=== PATIENT | female | born 1945 | race Caucasian/White ===

== ENCOUNTER → 2023-10-29 07:32 | Outpatient (REF) | payer MEDICARE, SELFPAY | LOC: EMG 07:32 | PROVIDERS: ATTENDING PHYSICIAN Orthopaedic Surgery Hand Surgery; FAMILY PHYSICIAN Physician Assistant | DX: G56.01 Carpal tunnel syndrome, right upper limb (principal); R20.0 Anesthesia of skin | CPT/HCPCS: 95886; 95909 ==

== ENCOUNTER 2024-06-21 21:33 | Emergency (ER) | payer MEDICARE, SELFPAY ==
[2024-06-21 21:38] VITALS: BP 155/86
[2024-06-21 21:53] LABS: % Basophils 0.3 % (0-2); % Eosinophils 0.8 % (0-6); % Immature Granulocytes 0.8 % (0-0.5); % Lymphocytes 9.2 % (20.5-51.1); % Monocytes 10.1 % (1.7-9.3); % Neutrophils 78.8 % (42.2-75.2); Absolute Eosinophils 0.1 10^3/uL (0-0.7); Absolute Immature Granulocytes 0.1 10^3/uL (0-0.05); Absolute Lymphocytes 0.7 10^3/uL (1.2-3.4); Absolute Monocytes 0.8 10^3/uL (0.1-0.6); Absolute Neutrophils 5.9 10^3/uL (1.4-6.5); Hematocrit 31.8 % (37.0-47.0); Hemoglobin 10.3 g/dL (12.0-16.0); Mean Corp Hgb Conc. 32.4 g/dL (33.0-37.0); Mean Corpuscular Hgb 23.7 pg (27.0-31.0); Mean Corpuscular Volume 73.1 fL (81.0-99.0); Mean Platelet Volume 10.6 fL (7.4-10.4); Nucleated Red Blood Cells % 0 %; Platelet Count 261 10^3/uL (130-400); Red Blood Cell Count 4.35 10^6/uL (4.20-5.40); Red Cell Dist. Width 17.2 % (11.5-14.5); White Blood Cell Count 7.5 10^3/uL (4.8-10.8)
[2024-06-21 22:15] LABS: ALT (SGPT) 13 U/L (0-35); AST (SGOT) 18 U/L (14-36); Albumin 3.9 g/dl (3.5-5.0); Alkaline Phosphatase 94 U/L (38-126); Blood Urea Nitrogen 14 mg/dl (7-17); Carbon Dioxide 19 mmol/L (22-30); Chloride 101 mmol/L (98-107); Glucose 108 mg/dl (70-99); Potassium 4.1 mmol/L (3.5-5.1); Sodium 134 mmol/L (135-145); Total Bilirubin 0.5 mg/dl (0.2-1.3); Total Protein 6.9 g/dl (6.3-8.2); eGFR > 60.00
--- NOTE | 2024-06-21 23:34 | ED.GENMED ---
History of Present Illness
General
Chief Complaint: Abdominal Pain
Source: patient
Time Seen by Provider: 06/21/24 23:28
History of Present Illness
History of Present Illness:
79-year-old female presents to the emergency room complaining of abdominal pain. Patient has been having the abdominal pain intermittently for about the past week. It seemed to be more prominent on the right. Patient also complaining of some
constipation. She is moving her bowels but seems to be a small amount each time. No fever, chills, diarrhea. She has nausea but has not vomited. No sick contacts. Patient does have a history of a gastric sleeve surgery.
Past History
Past History
ED Past Medical History: GERD, HTN, Hypercholesterolemia and Other (Arthritis)
Social History
Tobacco: Non-smoker
Phy Exam
Physical Exam
Physical Exam:
General: Awake, Alert, Oriented X3. No acute distress.
Vitals: unremarkable
Head: Atraumatic
Eyes: Pupils equal, EOMI
Throat: Airway intact, no exudates
Neck: Trachea midline
Lungs: Clear and equal b/l
Heart: Regular rate, no murmurs
Abd: Soft, Nontender, No pulsatile mass
Neuro: Nonfocal
Skin: Warm, dry, no rash
Extremities: pulses equal b/l, no edema
Course
Orders/Labs/Results
Orders:
Orders
06/21/24 21:45
CMP [Comprehensive Metabolic Panel] Urgent
Complete Blood Count/With Diff Urgent
06/21/24 23:35
Urinalysis Reflex To Culture Urgent
Date Specimen was Collected: 06/22/24
Time Specimen was Collected: 02:01
06/22/24 01:00
CT Abd/pelvis W Iv Cont Urgent
Reason For Exam: lower abd pain
06/22/24 02:03
Urine Microscopic Reflex Cult Urgent
06/22/24 03:01
LevoFLOXacin [Levaquin] 750 mg PO NOW STA
MetroNIDAZOLE [Flagyl] 500 mg PO NOW STA
Abnormal Lab Results
06/21/24 06/22/24
21:45 02:03
Hgb 10.3 L g/dL
(12.0-16.0)
Hct 31.8 L %
(37.0-47.0)
MCV 73.1 L fL
(81.0-99.0)
MCH 23.7 L pg
(27.0-31.0)
MCHC 32.4 L g/dL
(33.0-37.0)
RDW 17.2 H %
(11.5-14.5)
MPV 10.6 H fL
(7.4-10.4)
Abs Immat Gran (auto) 0.1 H 10^3/uL
(0-0.05)
Absolute Lymphs (auto) 0.7 L 10^3/uL
(1.2-3.4)
Absolute Monos (auto) 0.8 H 10^3/uL
(0.1-0.6)
Immature Gran % 0.8 H %
(0-0.5)
Neutrophils % 78.8 H %
(42.2-75.2)
Lymphocytes % 9.2 L %
(20.5-51.1)
Monocytes % 10.1 H %
(1.7-9.3)
Sodium 134 L mmol/L
(135-145)
Carbon Dioxide 19 L mmol/L
(22-30)
Glucose 108 H mg/dl
(70-99)
Urine Ketones Trace A
(Negative)
Ur Occult Blood Reflex Trace A
(Negative)
Leukocyte Esterase Rfl Trace A
(Negative)
Urine RBC 7-10 A /HPF
(0-2)
Urine Bacteria (Reflex) Few A
(Negative)
06/21/24 21:45
06/21/24 21:45
Vital Signs
Initial and Last Documented VS:
Initial Vital Signs
Temp Pulse Resp BP Pulse Ox
98.9 F 80 22 155/86 99
06/21/24 21:38 06/21/24 21:38 06/21/24 21:38 06/21/24 21:38 06/21/24 21:38
Last Documented Vital Signs
Temp Pulse Resp BP Pulse Ox
98.9 F 74 20 142/98 96
06/21/24 21:38 06/22/24 01:08 06/22/24 00:45 06/22/24 03:15 06/22/24 01:08
MDM/Problems Addressed
Differential Diagnosis Includes:
Kidney stone, diverticulitis, constipation
MDM/Problems Addressed:
Patient is hemodynamically stable. White count is normal. She is found to have diverticulitis on imaging. She does not appear unstable and does appear to be a good candidate for outpatient management. Patient is allergic to penicillin and so we
will treat her with Levaquin and Flagyl.
*Radiology
Radiology exam reviewed: radiology read reviewed
*Pulse Oximetry
Patient hypoxic: no
*Critical Care Note
Total Time (30-74mins, 75-104mins- exclusive of procedures): Not Applicable
ED Attending Note
-
Portions of this chart may have been created with voice recognition software.� Occasional wrong word or��sound alike� substitutions may have occurred due to the inherent limitations of voice recognition software.
Discharge Plan
Departure
Patient Disposition: Home (Routine Discharge)
Date of Disposition: 06/22/24
Time of Disposition: 03:03
Patient with high blood pressure during this ER visit?: No
Condition: Good
Discharge Problem:
Abdominal pain
Instructions: Diverticulitis (DC), Abdominal Pain
Prescriptions:
New
metronidazole 500 mg tablet
500 mg PO TID Qty: 21 0RF
levofloxacin 750 mg tablet
750 mg PO DAILY 7 Days Qty: 7 0RF
No Action
multivitamin [Jdc-Pjbrjy-Izpjb] 1 EACH tablet
1 ea PO DAILY
sertraline 100 MG tablet
150 mg PO DAILY
ezetimibe-simvastatin [Vytorin 10-10] 1 EACH tablet
1 ea PO DAILY
C,E,zinc,copper [id number] 1 CAP capsule
1 cap PO DAILY
Calcium
1 tab PO DAILY
Celebrex
1 tab PO DAILY
Patient Comments:
unsure of dosage
warfarin [Jantoven] 5 MG tablet
5 mg PO DAILY Qty: 0 0RF
Omeprazole
1 tab PO DAILY
Sulfamethoxazole/Trimethoprim DS
1 tab PO BID
clindamycin HCl 300 MG capsule
300 mg PO TID Qty: 30 0RF
Referrals:
Erika Mcdonnell PA-C [Family Provider] -
Wilmer Sol MD [Active] -
Interventions
Interventions:
*Risk Screen - Suicide Last Done: 06/21/24 21:38
*General Assessment Last Done: 06/21/24 23:48
*Neglect/Abuse Screening Last Done: 06/21/24 21:38
ED- Fall Risk Assessment Last Done: 06/21/24 23:48
*ED COVID-19 Vaccine History Last Done: 06/21/24 23:48
*Nursing Disposition Last Done: 06/22/24 03:42
TE-Kiudho-Sccpwugnov Assessment Last Done: 06/21/24 23:48
Discharge Date and Time
Discharge Date/Time: 06/22/24 03:43
Print Language: BAHRAINI
[2024-06-21 23:48] VITALS: BMI 32.9
[2024-06-21 23:54] VITALS: BP 146/73
[2024-06-22] VITALS: BP 104/94
[2024-06-22 02:11] LABS: Urine Albumin Negative (Neg - Trace); Urine Bilirubin Negative (Negative); Urine Character Clear (Clear); Urine Color Yellow; Urine Glucose Negative (Negative); Urine Ketone Trace (Negative); Urine Leukocyte Trace (Negative); Urine Nitrite Negative (Negative); Urine Occult Blood Trace (Negative); Urine Urobilinogen Negative (Neg - 1+); Urine pH 6.5 (5.0-9.0)
[2024-06-22 02:20] LABS: Urine Bacteria Few (Negative)
[2024-06-22] MEDS: LEVAQUIN 750 MG PO (03:09)
[2024-06-22] MEDS: FLAGYL 500 MG PO (03:09)
[2024-06-22 03:15] VITALS: BP 142/98
== END 2024-06-22 03:43 | disposition home or self-care (01) ==
LOC: EMR 21:33
PROVIDERS: Emergency Medicine; EMERGENCY PHYSICIAN Emergency Medicine; FAMILY PHYSICIAN Physician Assistant
DX: R10.9 Unspecified abdominal pain (principal); K59.00 Constipation, unspecified; K21.9 Gastro-esophageal reflux disease without esophagitis; I10 Essential (primary) hypertension; E78.00 Pure hypercholesterolemia, unspecified; M19.90 Unspecified osteoarthritis, unspecified site
CPT/HCPCS: 99284; 74177; 80053; 81003; 81015; 85025; Q9967

== ENCOUNTER → 2024-07-21 13:12 | Outpatient (REF) | payer MEDICARE, SELFPAY | LOC: HWRAD 13:12 | PROVIDERS: ATTENDING PHYSICIAN Physician Assistant | DX: N83.8 Other noninflammatory disorders of ovary, fallopian tube and broad ligament (principal) | CPT/HCPCS: 76830; 76856 ==

== ENCOUNTER 2024-08-29 03:42 | Inpatient (IN) | payer MEDICARE, SELFPAY ==
[2024-08-28 18:59] VITALS: BP 166/95
--- NOTE | 2024-08-28 22:09 | ED.GENMED ---
History of Present Illness
General
Chief Complaint: Musculo-Skeletal Complaint
Source: patient and family
Exam Limitations: none
Time Seen by Provider: 08/28/24 21:55
Nursing documentation reviewed up to this point in time: agreed with
History of Present Illness
History of Present Illness:
This a pleasant 79-year-old female that presents to the emergency department with left groin pain. She states that she was getting out of the shower and felt sudden pain. She denies any trauma. She felt a popping sensation in her groin. Patient
typically takes warfarin but she is due for a colonoscopy this week and has been bridging to Lovenox. Patient denies numbness or tingling. Reports no abdominal pain, except for the pain in her right lower quadrant that is being evaluated for
diverticulitis. She has been to the emergency department 2 times in the last few weeks for this diverticulitis pain. Patient states that the current pain is on the opposite side and does not feel similar. Denies fever, chills, nausea or vomiting.
She states that her pain is exacerbated when she straightens out her leg. She had a prior hip replacement and knee replacement on the left side but again does not feel that this is similar pain.
Past History
Past History
ED Past Medical History: GERD, HTN, Hypercholesterolemia and Other (Arthritis)
Social History
Tobacco: Non-smoker
Review of Systems
Review of Systems
Allergies reviewed?: Yes
All Other Systems: ROS reviewed and negative except as documented in HPI and ROS
ABD/GI: Denies abdominal pain, nausea, vomiting, diarrhea or constipated
Musculoskeletal: Reports joint swelling and muscle stiffness
Phy Exam
General Physical Exam
General Presentation: well appearing and moderate distress
General age: appears stated age
General Skin: warm and dry
General Habitus: normal
General Mental: alert
General Hydration: appears well hydrated
ENT Exam
ENT Exam: EOMI, pharynx normal, neck supple and normocephalic
Eye Exam
Eye Exam: PERRL, cornea clear and conjunctiva normal
Cardiovascular Exam
Cardiovascular Exam: regular rate/rhythm, no edema, no murmur and normal peripheral pulses
Pulmonary Exam
Pulmonary Exam: lungs clear, no respiratory distress, no rales, no crackles, no rhonchi, no stridor, no wheezing and no cough
Gastrointestinal Exam
Gastrointestinal Exam: normal bowel sounds, non tender, soft, no organomegaly, no pulsatile mass, non distended and other (Ecchymosis from subcutaneous injections in her lower abdomen)
Neurological Exam
Neurological Exam: alert, oriented x3, no motor deficits and speech normal
Musculoskeletal Exam
Musculoskeletal Exam: full ROM and no edema
Skin Exam
Skin Exam: normal color, warm/dry, no rash and no petechia
Psychiatric Exam
Psychiatric Exam: normal mood/affect
Course
Orders/Labs/Results
Orders:
Orders
08/28/24 22:05
Morphine Sulfate 4 mg IV NOW STA
Ondansetron Injectable [Zofran] 4 mg IV NOW STA
US Legs, Left [US Periph Venous LOWER Ext LT] Urgent
Comment:
Reason For Exam: lgroin pain, sudden onset, while bridging anticoag
08/28/24 22:13
Complete Blood Count/With Diff Urgent
Comprehensive Metabolic Panel Urgent
Prothrombin Time Urgent
08/29/24 00:00
CT Pelvis W/o Iv Contrast Urgent
Reason For Exam: left groin pain
08/29/24 00:57
CT Abd/pelvis Angio W/wo Iv Urgent
Comment:
Reason For Exam: left illiopsoas bleed
08/29/24 00:58
Type+Screen Urgent
08/29/24 01:40
ABO2 Urgent
BBK Wristband Number:
Associate notified that ABO2 has been ordered: CHITRA
Date: 08/29/24
Time: 01:10
Sample Collector ID: [id number]
08/29/24 02:58
Morphine Sulfate 4 mg .ROUTE .STK-MED ONE
08/29/24 03:11
Morphine Sulfate 4 mg IV NOW STA
08/29/24 03:22
Admit/Transfer Patient As Directed
Co-Sign Provider:
Level of Care: Inpatient admission
Assign to:: Telemetry
Physician / Group: hospitalist
Diagnosis: spontanous RP hematoma
Reason for Telemetry: Other
Other Reason for Telemetry: bleeding
Date to Stop Telemetry: 08/31/24
Time to Stop Telemetry: 11:00
Reason for Hospitalization: spontaneous hematoma
Expected length of stay greater than two midnights?: Yes
ELOS- Estimated Length of Stay in days: 2
I certify the patient meets the requirements for IP care: Yes
PRN Pain Medication Management As Directed
May give lesser potent ordered pain med per pt: Yes
preference::
Protocol:: Medication orders for pain may be administered in a
manner that supports deferring to patient preference
when the pt is:
- Requesting an ordered lesser potent pain medication.
Least to most potent pain medications are defined
as: acetaminophen < NSAID < tramadol < opioids
(morphine, oxycodone, hydromorphone).
- Requesting a lesser dose of the same medication IF
ORDERED.
- Requesting a less intrusive route of administration
if both routes are prescribed by the provider (PO <
IV).
08/29/24 03:24
Code Status As Directed
Resuscitation Status: Full Code
08/31/24 11:00
DC Protocol for Telemetry ONCE
Abnormal Lab Results
08/28/24
22:13
RBC 4.14 L 10^6/uL
(4.20-5.40)
Hgb 10.2 L g/dL
(12.0-16.0)
Hct 30.5 L %
(37.0-47.0)
MCV 73.7 L fL
(81.0-99.0)
MCH 24.6 L pg
(27.0-31.0)
RDW 18.7 H %
(11.5-14.5)
MPV 10.7 H fL
(7.4-10.4)
Absolute Neuts (auto) 7.4 H 10^3/uL
(1.4-6.5)
Absolute Lymphs (auto) 0.4 L 10^3/uL
(1.2-3.4)
Neutrophils % 90.7 H %
(42.2-75.2)
Lymphocytes % 4.7 L %
(20.5-51.1)
PT 27.1 H Sec
(11.4-14.6)
Sodium 134 L mmol/L
(135-145)
Carbon Dioxide 21 L mmol/L
(22-30)
Glucose 144 H mg/dl
(70-99)
08/28/24 22:13
08/28/24 22:13
Vital Signs
Initial and Last Documented VS:
Initial Vital Signs
Temp Pulse Resp BP Pulse Ox
97.9 F 63 20 166/95 99
08/28/24 18:59 08/28/24 18:59 08/28/24 18:59 08/28/24 18:59 08/28/24 18:59
Last Documented Vital Signs
Temp Pulse Resp BP Pulse Ox
97.9 F 81 22 147/90 96
08/28/24 18:59 08/29/24 03:00 08/29/24 03:00 08/29/24 03:00 08/29/24 03:00
*Critical Care Note
Total Time (30-74mins, 75-104mins- exclusive of procedures): 35 (Critical care statement: A total of 35 minutes of critical care time was provided for this patient. This time is separate from time utilized to perform the aforementioned documented
procedures. Aggregate critical care time includes only time during which I was engaged in work directl)
Update Note
Update Note:
Ultrasound negative for DVT
Will order CT scan for persistent pelvic pain
Updated patient on CT scan results as follows:
CT PELVIS noncon
IMPRESSION:
Comparison: 06/22/2024.
Large hematoma centered in the left iliopsoas muscle measuring approximately 6.4 x 8.7 x 14 cm. There is adjacent extraperitoneal hemorrhage in the left pelvis is a possible small amount of intraperitoneal hemorrhage in the pelvis. If indicated
could evaluate further with CTA.
No acute osseous abnormality. Left total hip arthroplasty.
There is once again diverticulitis of the sigmoid colon with extensive inflammatory changes which is abutting and inseparable from the fundus of the uterus. Correlate with any abnormal vaginal discharge for the possibility of a developing
colouterine fistula. Additionally, recommend follow-up to exclude an underlying mass lesion in this location.
[facility] texted interventional radiology awaiting for response
CT angio of the abdomen pelvis ordered
CTA AP w/wo iv contrast
IMPRESSION:
Comparison: Same day noncontrast CT pelvis, CT abdomen and pelvis on 06/22/2024.
The large left-sided iliopsoas hematoma is similar compared to the prior, along with the adjacent extraperitoneal hemorrhage in the left pelvis. No evidence of active bleeding identified on the arterial phase. On the venous phase there are 2 small
foci of active bleeding (601/72 and 74).
Similar sigmoid colon diverticulitis with inflammatory changes abutting the fundus of the uterus. As described previously correlate for any clinical signs of a colouterine fistula and consider follow-up with general surgery. Additionally,
follow-up imaging and/or endoscopy recommended to exclude an underlying mass lesion.
Severe atherosclerosis in the abdominal aorta. No AAA.
Gastric sleeve.
Cholecystectomy.
Small hiatal hernia.
Moderate umbilical hernia containing fat and fluid.
ED Attending Note
-
Portions of this chart may have been created with voice recognition software.� Occasional wrong word or��sound alike� substitutions may have occurred due to the inherent limitations of voice recognition software.
Discharge Plan
Departure
Patient Disposition: Admit
Date of Disposition: 08/29/24
Time of Disposition: 02:10
Presentation/result/management discussed w/ accepting MD/DO: Hospitalist
Condition: Fair
Discharge Problem:
Hematoma of left iliopsoas muscle, Diverticulitis of sigmoid colon
Interventions
Interventions:
*Risk Screen - Suicide Last Done: 08/29/24 00:15
*General Assessment Last Done: 08/29/24 00:15
*Neglect/Abuse Screening Last Done: 08/29/24 00:15
*ED- Fall Risk Assessment Last Done: 08/28/24 21:04
*ED COVID-19 Vaccine History Last Done: 08/29/24 00:15
ED-Musculoskeletal Assessment Last Done: 08/28/24 21:04
[2024-08-28] MEDS: ZOFRAN 4 MG IV (22:13)
[2024-08-28] MEDS: MORPHINE SULFATE 4 MG IV (22:16)
[2024-08-28 22:31] LABS: % Basophils 0.1 % (0-2); % Immature Granulocytes 0.5 % (0-0.5); % Lymphocytes 4.7 % (20.5-51.1); % Neutrophils 90.7 % (42.2-75.2); Absolute Lymphocytes 0.4 10^3/uL (1.2-3.4); Absolute Monocytes 0.3 10^3/uL (0.1-0.6); Absolute Neutrophils 7.4 10^3/uL (1.4-6.5); Hematocrit 30.5 % (37.0-47.0); Hemoglobin 10.2 g/dL (12.0-16.0); Mean Corp Hgb Conc. 33.4 g/dL (33.0-37.0); Mean Corpuscular Hgb 24.6 pg (27.0-31.0); Mean Corpuscular Volume 73.7 fL (81.0-99.0); Mean Platelet Volume 10.7 fL (7.4-10.4); Nucleated Red Blood Cells % 0 %; Platelet Count 289 10^3/uL (130-400); Red Blood Cell Count 4.14 10^6/uL (4.20-5.40); Red Cell Dist. Width 18.7 % (11.5-14.5); White Blood Cell Count 8.2 10^3/uL (4.8-10.8)
[2024-08-28 22:35] VITALS: BP 169/88
[2024-08-28 22:38] LABS: PT 27.1 Sec (11.4-14.6)
[2024-08-28 22:48] LABS: ALT (SGPT) 14 U/L (0-35); AST (SGOT) 19 U/L (14-36); Albumin 3.7 g/dl (3.5-5.0); Alkaline Phosphatase 97 U/L (38-126); Blood Urea Nitrogen 13 mg/dl (7-17); Calcium 8.8 mg/dl (8.4-10.2); Carbon Dioxide 21 mmol/L (22-30); Chloride 104 mmol/L (98-107); Glucose 144 mg/dl (70-99); Potassium 4.2 mmol/L (3.5-5.1); Sodium 134 mmol/L (135-145); Total Bilirubin 0.6 mg/dl (0.2-1.3); Total Protein 6.6 g/dl (6.3-8.2); eGFR > 60.00
[2024-08-29] VITALS (9 sets, daily range): BP systolic 92–156; BP diastolic 64–96; BMI 31.8; BMI 30.8
--- NOTE | 2024-08-29 02:54 | HPS.HSE ---
Family Physician
-
Family Physician: Brown Flores MD
Chief Complaint
-
left groin pain
History of Present Illness
This is a 79 y.o female with past medical history of portal vein thrombosis for which she is anticoagulated on Coumadin, hypertension, thoracic aortic aneurysm without rupture, depression, anxiety, GERD, hyperlipidemia presenting to the emergency
department with left-sided groin pain that started spontaneously the previous evening.
Patient reported that she was just walking out of the shower going to join her to watch TV when she began to have excruciating left inguinal groin pain. She reports that has 10 out of 10 and more. She denies any pain radiating down to her
legs. She denies any nausea or vomiting. She denies any fevers or chills. She denies any abdominal distention. She denies having any urinary symptoms.
Patient was recently diagnosed with diverticulitis and was seen at [facility] with discharge on August 23 to completed 2-week course of antibiotics. She does report she has been using cefuroxime since then and denies having abdominal symptoms
or urinary symptoms. She denies having any fevers or chills. Due to the degree of her diverticulitis she has a pending colonoscopy and EGD. Prior to this episode she was seen at the emergency department in June for episode of diverticulitis
for which she also was treated with antibiotics without admission.
Because of the pending EGD patient was told to discontinue or warfarin and to bridge with Lovenox. She started bridging with Lovenox 2 days ago and last dose of Lovenox was Friday morning. Coumadin was apparently discontinued on 3 days
prior to onset of symptoms.
In the emergency department she was afebrile, blood pressure was stable at 156/90 with a pulse of 67 and oxygen saturation 7% on room air. Hemoglobin was 10.2, white count was 8.2 and a platelet count of 289. Electrolytes BUN/creatinine were all
in normal range. INR remains elevated at 2.5.
Peripheral ultrasound is negative for DVT.
CT of the abdomen pelvis with angio shows large hematoma centered in the left iliopsoas muscle measuring approximately 6 x 8 x 14 cm. There is adjacent extraperitoneal hemorrhage in the left pelvis with which is a possible small amount of
intraperitoneal hemorrhage. There is also no evidence of active bleeding identified in the arterial phase. On the venous phase and appears to be 2 small foci of active bleeding. There is also ongoing active sigmoid diverticulitis with extensive
inflammatory changes that is abating the fundus of the uterus with loss of distinction
Medical History
Past Medical History
Past Medical History: Reports GERD, HTN and Other (Portal vein thrombosis)
Additional Past Medical History:
Abdominal aortic aneurysm
Past Surgical History: Reports Cholecystectomy, Orthopedic (Left total knee replacement, left total hip arthroplasty) and Tonsilectomy
Additional Past Surgical History:
Sleeve gastrectomy 2016
Social History
Tobacco: Non-smoker
Alcohol: None
Drug: None
Personal:
Living: With Family
Employment: Retired
Family History
Family History: Not pertinent
Allergies / Home Medications
Allergies reflects when Allergies were last updated in [employer]
Home Medications with original date entered in [employer]
Allergy/Medication List:
Allergies
Allergy/AdvReac Type Severity Reaction Status Date / Time
itraconazole [From Sporanox] Allergy Rash Verified 06/21/24 21:41
Penicillins Allergy Rash Verified 06/21/24 21:41
vancomycin Allergy Rash Verified 06/21/24 21:41
Home Medications
ezetimibe 10 mg-simvastatin 10 mg tablet (Vytorin) 1 ea PO DAILY 12/04/12
multivitamin (Edb-Ysncfi-Prvmp tablet) 1 ea PO DAILY 12/04/12
sertraline 100 mg tablet 150 mg PO DAILY 12/04/12
warfarin 5 mg tablet (Jantoven) 5 mg PO DAILY ##0 10/31/14
celecoxib 200 mg capsule 200 mg PO DAILY 08/29/24
enoxaparin 80 mg/0.8 mL subcutaneous syringe (Lovenox) 80 mg SC Q12H 08/29/24
losartan 25 mg tablet 25 mg PO DAILY 08/29/24
metoprolol tartrate 25 mg tablet 12.5 mg PO BID 08/29/24
omeprazole 40 mg capsule,delayed release 40 mg PO DAILY 08/29/24
trazodone 50 mg tablet 50 mg PO HS 08/29/24
Review of Systems
-
History Source: Patient
Constitutional: Reports No Symptoms
EENT: Reports No Symptoms
Respiratory: Reports No Symptoms
Cardiac: Reports No Symptoms
Abdomen/GI: Reports Abdominal Pain and Nausea
: Reports No Symptoms
Musculoskeletal: Reports No Symptoms
Skin: Reports No Symptoms
Neurological: Reports No Symptoms
Endocrine: Reports No Symptoms
Hematologic/Lymphatic: Reports No Symptoms
Psych: Reports No Symptoms
Physical Exam
Vital Signs
Vital Signs
Temp Pulse Resp BP Pulse Ox
97.9 F 67 16 156/96 97
08/28/24 18:59 08/29/24 00:15 08/29/24 00:15 08/29/24 00:15 08/29/24 02:19
Physical Exam
General: Well Developed, Well Nourished and Pain
HEENT: NormoCephalic, Anicteric, Moist mucous membranes and Atraumatic
Respiratory: Clear
Cardiac: S1/S2 and Regular Rhythm
Breast: Deferred by me
GI: Soft, Non Distended, Normal Bowel Sounds and Tender
Rectal: Deferred by Provider
Genito-urinary: Deferred by me
Musculoskeletal: No Clubbing, No Cyanosis and No Edema
Skin: Warm
Neuro: AO x 3 and Nonfocal/grossly intact
Hematologic/Lymphatic: No Lymphadenopathy
Psych: Calm
Laboratory Results
-
08/28/24 22:13
08/28/24 22:13
Laboratory Results
PT 27.1 Sec (11.4-14.6) H 08/28/24 22:13
INR 2.50 08/28/24 22:13
Total Bilirubin 0.6 mg/dl (0.2-1.3) 08/28/24 22:13
AST 19 U/L (14-36) 08/28/24 22:13
ALT 14 U/L (0-35) 08/28/24 22:13
Alkaline Phosphatase 97 U/L (38-126) 08/28/24 22:13
Data Reviewed
-
CT Scan: Report Reviewed by me
Lab Data: Labs Reviewed by me
Old Records: Reviewed
Impression/Plan
-
IMPRESSION:
79-year-old female with history of portal vein thrombosis for which she is anticoagulated on Coumadin, hypertension, obesity, history of recent diverticulitis for which he is pending colonoscopy that required bridging of anticoagulation who now
presents to the emergency department with acute episode of left-sided groin pain and was found to have a fairly large hematoma centered in the left iliopsoas muscle. She has a small foci of bleeding but no arterial bleed. She still has
inflammatory changes consistent with sigmoid diverticulitis but she is not showing systemic signs of diverticulitis at this time.
PLAN:
1. Rp hematoma centered in the left iliopsoas muscle - large hematoma but no arterial bleed. Small bleeding foci noted. She is hemodynamically stable. Hgb is normal and unchanged from june. Appears to be spontanous without trauma. However she
has been taking lovenox 80mg sc q 12 since friday with discontinuation of coumadin while preparing for colonoscopy/egd at [facility] later this week. I suspect anticoagulation is a factor.
- admit to telemetry for now
- d/w IR, evaluating images but states unlikely to need procedure
- NPO for now
- type and screen and h/h q 8
- INR 2.5, holding AC for now
- pain control and antimetics
2. Diverticulitis - CT scan shows active inflammatory process although patient appears to have improved symptomatically since 08/23 until occurence of hematoma. She was not discharged on flagyl due to it's potentiating effect on warfarin.
- due to ongoing disease and avoiding flagyl for coaulopathy, as well as pcn allergy, will give meropenem for now as a single regimen
- monitor serial exam
- CT scan suggests surgical consult, however not a surgical candidate at this time
- NPO
- maintenance fluids
- ppi iv daily
- continue metoprolol with hold parameters
DVT PPX - SCDs
Code status - full code
[2024-08-29] MEDS: MORPHINE SULFATE 4 MG IV (03:11)
[2024-08-29 06:10] LABS: Hematocrit 29.5 % (37.0-47.0); Hemoglobin 9.6 g/dL (12.0-16.0); Mean Corp Hgb Conc. 32.5 g/dL (33.0-37.0); Mean Corpuscular Hgb 24.6 pg (27.0-31.0); Mean Corpuscular Volume 75.4 fL (81.0-99.0); Mean Platelet Volume 10.4 fL (7.4-10.4); Platelet Count 278 10^3/uL (130-400); Red Blood Cell Count 3.91 10^6/uL (4.20-5.40); Red Cell Dist. Width 18.8 % (11.5-14.5); White Blood Cell Count 8.4 10^3/uL (4.8-10.8)
[2024-08-29 06:18] LABS: INR 2.32; PT 25.5 Sec (11.4-14.6)
[2024-08-29] MEDS: MERREM 500 MG IV ×4 (06:32→23:47)
[2024-08-29] MEDS: STERILE WATER FOR INJECTION 10 ML IV ×4 (06:33→23:48)
[2024-08-29 07:34] LABS: Hepatitis C Antibody Negative (Negative)
[2024-08-29] MEDS: LOPRESSOR 12.5 MG PO ×2 (08:04→20:07)
[2024-08-29] MEDS: ZOLOFT 150 MG PO (08:05)
[2024-08-29] MEDS: PROTONIX IV 40 MG IV (08:06)
[2024-08-29] MEDS: NSS (PRESERVATIVE FREE) 10 ML IV (08:06)
[2024-08-29] MEDS: TYLENOL 650 MG PO (08:06)
[2024-08-29] MEDS: ROXICODONE 5 MG PO ×2 (08:11→20:08)
--- NOTE | 2024-08-29 08:43 | W.PN.UPDATE ---
Addendum entered and electronically signed by Luis Barnes MD 08/29/24 12:40:
Prelim CT abd/pelvis results:
Large hematoma centered in the left iliopsoas muscle measuring approximately 6.4 x 8.7 x 14 cm. There is adjacent extraperitoneal hemorrhage in the left pelvis is a possible small amount of intraperitoneal hemorrhage in the pelvis. If indicated
could evaluate further with CTA. No acute osseous abnormality. Left total hip arthroplasty.
There is once again diverticulitis of the sigmoid colon with extensive inflammatory changes which is abutting and inseparable from the fundus of the uterus. Correlate with any abnormal vaginal discharge for the possibility of a developing
colouterine fistula. Additionally, recommend follow-up to exclude an underlying mass lesion in this location.
INR still elevated at 2.32. Hemoglobin 9.6, was 10.2 upon admission.
Will give vitamin K 5 mg p.o. x 1 due to the size of the hematoma.
Continue to trend hemoglobin, trend INR.
Original Note:
Update Note
Progress Note Update
79 y.o female with past medical history of portal vein thrombosis for which she is anticoagulated on Coumadin, hypertension, thoracic aortic aneurysm without rupture, depression, anxiety, GERD, hyperlipidemia who was admitted early this morning with
spontaneous left iliopsoas muscle retroperitoneal hematoma while on subcu therapeutic Lovenox while stopping Coumadin in anticipation of colonoscopy. Hold Lovenox, hold Coumadin, trend hemoglobin.
Currently on meropenem for diverticulitis. Trial of full liquid diet, advance as tolerated.
Follow-up final CT abdomen and pelvis results.
[2024-08-29] MEDS: MEPHYTON 5 MG PO (13:04)
--- NOTE | 2024-08-29 15:20 | CM ---
Initial assessment completed at bedside
Pharmacy verified: [facility] [address] [facility]
Lives with in one floor home; 1 step to enter; bath has stall shower w/ grab bar
NO DME
Reported she is independent at baseline with ADLs and ambulation; retired; drives;
No SNF utilization history; past home health utilization w/ [facility] after ortho procedures
will transport home
Discharge plan to be determined; CM will monitor hospital course and support as needed
[2024-08-29] MEDS: DESYREL 50 MG PO (21:03)
[2024-08-29 22:52] LABS: Hematocrit 27.9 % (37.0-47.0); Hemoglobin 9.2 g/dL (12.0-16.0)
[2024-08-30] VITALS (7 sets, daily range): BP systolic 98–124; BP diastolic 52–73
[2024-08-30] MEDS: ROXICODONE 5 MG PO (03:35)
[2024-08-30 05:37] LABS: Hematocrit 29.2 % (37.0-47.0); Hemoglobin 9.5 g/dL (12.0-16.0); Mean Corp Hgb Conc. 32.5 g/dL (33.0-37.0); Mean Corpuscular Hgb 24.5 pg (27.0-31.0); Mean Corpuscular Volume 75.3 fL (81.0-99.0); Mean Platelet Volume 10.3 fL (7.4-10.4); Platelet Count 264 10^3/uL (130-400); Red Blood Cell Count 3.88 10^6/uL (4.20-5.40); White Blood Cell Count 10.3 10^3/uL (4.8-10.8)
[2024-08-30 05:49] LABS: INR 1.43; PT 17.7 Sec (11.4-14.6)
--- NOTE | 2024-08-30 05:59 | W.PN.HOSP.TC ---
Today's Communication/Plan
-
see a/p
Assessment / Plan
Assessment / Plan
Physical Exam
General: No acute distress appears comfortable at this time
HEENT: NormoCephalic, Anicteric, Moist mucous membranes and Atraumatic
Respiratory: Clear
Cardiac: S1/S2 and Regular Rhythm
GI: Soft, Non Distended, Normal Bowel Sounds, non-Tender
Musculoskeletal: No Clubbing, No Cyanosis and No Edema
Skin: Warm
Neuro: AO x 3 conversant coherent
Psych: Calm
77F hx portal vein thrombosis on Coumadin HTN Depression Anxiety GERD HLD ongoing persistent intermittent treatments for diverticulitis past month here for left-sided groin pain found to have iliopsoas hematoma. Prior to presentation patient had
been off Coumadin, on lovenox bridge, in preparation for outpt EGD/colonoscopy.
#Rp hematoma centered in the left iliopsoas muscle - large hematoma but no arterial bleed. Small bleeding foci noted. She is hemodynamically stable. Hgb is normal and unchanged from june. Appears to be spontaneous without trauma. However she
has been taking lovenox 80mg sc q 12 since discontinuation of Coumadin while preparing for colonoscopy/egd at [facility]. Anticoagulation likely contributing
- Tele admit
- d/w IR, no need for intervention, cont hold AC
- Clear liquid diet
- H&H so far stable
- INR since improved <2 following Vit K
- pain control and antimetics
#Afib RVR
developed afib rvr during stay improved with fluid boluses and continuation home metoprolol
has hx of afib dx years ago but loss to cardiology follow up
Cardio eval appreciated
# Diverticulitis - CT scan shows active inflammatory process although patient appears to have improved symptomatically since 08/23 until occurence of hematoma. She was not discharged on flagyl due to it's potentiating effect on warfarin.
#Hx portal vein thrombosis (not seen in recent imaging)
- ID eval appreciated empiric meropenem switched to Levaquin and Flagyl
- GI eval appreciated
- ppi iv daily
- continue metoprolol with hold parameters
DVT PPX - SCDs
Code status - full code
I spent a total of 50 minutes with the patient or on the floor. More than 50% of this time involved counseling and coordination of care.
Anticipated Discharge: 24 - 48 hours
Subjective/Interval History
-
Date of Service: August 30, 2024
No acute distress sitting up comfortably in bed. Reports overall feeling well. Denies significant pain at this time. Denies diarrhea. Day's events notable for afib rvr eventually improved with IVF boluses and metoprolol.
Objective Data
-
Labs:
Laboratory Results
08/29/24 08/30/24
22:46 05:14
WBC 10.3
Hgb 9.2 L 9.5 L
Hct 27.9 L 29.2 L
Plt Count 264
PT 17.7 H
INR 1.43
Vital Signs:
Vital Signs
Temp Pulse Resp BP Pulse Ox
98.2 F 117 16 103/67 96
08/30/24 03:10 08/30/24 03:10 08/30/24 03:10 08/30/24 03:10 08/30/24 03:10
I&O
08/28/24 08/29/24 08/30/24
06:59 06:59 06:59
Intake Total 1320 / 1320
Balance 1320 / 1320
[2024-08-30] MEDS: STERILE WATER FOR INJECTION 10 ML IV ×2 (06:23→11:44)
[2024-08-30] MEDS: MERREM 500 MG IV ×2 (06:23→11:44)
[2024-08-30] MEDS: NSS 500 IV ×2 (08:27→11:37)
[2024-08-30] MEDS: PROTONIX IV 40 MG IV (08:32)
[2024-08-30] MEDS: NSS (PRESERVATIVE FREE) 10 ML IV (08:32)
[2024-08-30] MEDS: ZOLOFT 150 MG PO (08:33)
[2024-08-30] MEDS: LOPRESSOR 12.5 MG PO ×2 (09:15→20:42)
[2024-08-30 11:33] LABS: Blood Urea Nitrogen 15 mg/dl (7-17); Carbon Dioxide 21 mmol/L (22-30); Chloride 104 mmol/L (98-107); Estimated Creatinine Clearance 54 ml/min; Glucose 91 mg/dl (70-99); Magnesium 2.3 mg/dl (1.6-2.3); Phosphorus 4.3 mg/dl (2.5-4.5); Potassium 4.5 mmol/L (3.5-5.1); Sodium 136 mmol/L (135-145); eGFR > 60.00
[2024-08-30] MEDS: NSS 1000 IV ×2 (12:16→23:36)
--- NOTE | 2024-08-30 13:33 | CON.GI ---
Consultation
-
Date/Time Consultation Performed: 08/30/24
Performing Provider: Lexa Arredondo MD
Reason for Consultation: abdominal pain, hx diverticulitis
Medical History
Chief Complaint / HPI
Chief Complaint: abdominal pain
History of Present Illness:
The patient is a 79-year-old female with past medical history as noted presents with abdominal pain. She has a history of diverticulitis, had an uncomplicated episode in June, completed course of antibiotics with resolution of symptoms. She
then went to [facility] ER in the beginning of July with recurrent symptoms, CAT scan again with uncomplicated diverticulitis. She again completed course of antibiotics and was feeling well. 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
who planned EGD and colonoscopy given her chronic heartburn symptoms. She is on Coumadin for what she describes as portal vein thrombosis. While doing a Lovenox bridge, on Friday she developed acute onset of severe abdominal left lower quadrant
pain. She came to the emergency room at [place] where CT of the pelvis suggest left iliopsoas intramuscular hematoma. CT of the abdomen pelvis with CT angiogram showed a large left iliopsoas hematoma which was stable from earlier pelvic CT.
There was a small component of active bleeding noted on this study on the . There was some surrounding inflammatory changes around the sigmoid with findings consistent with diverticulitis, though no abscess or free air. She states that her
total vein thrombosis many years ago was based on an imaging study when she had fever of unknown origin. She never had abdominal pain or elevated LFTs. She does not think that she followed up with a braille translator for hypercoagulable state and has
been on Coumadin for many years. She has done Lovenox bridge in the past without difficulty. Her last colonoscopy with Dr. Martinez was 1 year ago and unremarkable by report. She has had endoscopies in the past without significant pathology. She
currently denies any chest pain or shortness of breath.
Past Medical History
Past Medical History: Other (GERD, hypertension, portal vein thrombosis years ago)
Past Surgical History: Other (Sleeve gastrectomy, cholecystectomy, left knee replacement, left hip surgery, tonsillectomy)
Social History
Tobacco: Non-Smoker
Alcohol: None
Family History
Family History: Reviewed & Not Pertinent
Allergies / Home Medications
Allergy/AdvReac Type Severity Reaction Status Date / Time
itraconazole [From Sporanox] Allergy Rash Verified 06/21/24 21:41
Penicillins Allergy Rash Verified 06/21/24 21:41
vancomycin Allergy Rash Verified 06/21/24 21:41
�Medication �Instructions �Recorded
ezetimibe 10 mg-simvastatin 10 mg 1 ea PO DAILY 12/04/12
tablet (Vytorin)
multivitamin (Zau-Wrrppx-Efeby 1 ea PO DAILY 12/04/12
tablet)
sertraline 100 mg tablet 150 mg PO DAILY 12/04/12
warfarin 5 mg tablet (Jantoven) 5 mg PO DAILY ##0 10/31/14
celecoxib 200 mg capsule 200 mg PO DAILY 08/29/24
enoxaparin 80 mg/0.8 mL 80 mg SC Q12H 08/29/24
subcutaneous syringe (Lovenox)
losartan 25 mg tablet 25 mg PO DAILY 08/29/24
metoprolol tartrate 25 mg tablet 12.5 mg PO BID 08/29/24
omeprazole 40 mg capsule,delayed 40 mg PO DAILY 08/29/24
release
trazodone 50 mg tablet 50 mg PO HS 08/29/24
Review of Systems
-
All other systems: A 12 pt ROS was Negative except as stated above in HPI
Vital Signs
Temp Pulse Resp BP Pulse Ox
99.4 F 120 16 107/73 99
08/30/24 11:00 08/30/24 11:00 08/30/24 11:00 08/30/24 11:00 08/30/24 11:00
Physical Exam
Exam
General: NAD
HEENT: MMM, anicteric, no lymphadenopathy
Heart: Regular, no murmurs
Lungs: CTA bilaterally
Abdomen: normal bowel sounds, soft, no tenderness, no rebound or guarding, no masses, bruits or ascites, ecchymosis in the left lower quadrant
Extremeties: no edema
Skin: no rashes
Results
WBC 10.3 10^3/uL (4.8-10.8) 08/30/24 05:14
Hgb 9.5 g/dL (12.0-16.0) L 08/30/24 05:14
Hct 29.2 % (37.0-47.0) L 08/30/24 05:14
MCV 75.3 fL (81.0-99.0) L 08/30/24 05:14
Plt Count 264 10^3/uL (130-400) 08/30/24 05:14
Absolute Neuts (auto) 7.4 10^3/uL (1.4-6.5) H 08/28/24 22:13
PT 17.7 Sec (11.4-14.6) H 08/30/24 05:14
INR 1.43 08/30/24 05:14
Sodium 136 mmol/L (135-145) 08/30/24 05:14
Potassium 4.5 mmol/L (3.5-5.1) 08/30/24 05:14
Chloride 104 mmol/L (98-107) 08/30/24 05:14
Carbon Dioxide 21 mmol/L (22-30) L 08/30/24 05:14
BUN 15 mg/dl (7-17) 08/30/24 05:14
Creatinine 0.8 mg/dL (0.6-1.0) 08/30/24 05:14
Calcium 9.0 mg/dl (8.4-10.2) 08/30/24 05:14
Total Bilirubin 0.6 mg/dl (0.2-1.3) 08/28/24 22:13
AST 19 U/L (14-36) 08/28/24 22:13
ALT 14 U/L (0-35) 08/28/24 22:13
Alkaline Phosphatase 97 U/L (38-126) 08/28/24 22:13
Hepatitis C Antibody Negative (Negative) 08/29/24 05:27
Diagnostic Image Results:
CT:
IMPRESSION: Large left iliopsoas hematoma which appears stable from CT scan obtained earlier this same date.
On postcontrast delayed images, there are 2 small focal areas of contrast density, suggesting a small component of active bleeding.
Sigmoid diverticulitis, which appears moderate to severe with surrounding inflammatory changes. No evidence for abscess. No evidence of free intraperitoneal air.
Fat-containing umbilical hernia, which also contains patchy fluid, similar to examination of June 22, 2024. Please correlate with any acute clinical symptoms.
Prior GI Procedures:
EGD:
Colonoscopy:
Assessment / Plan
-
1. Iliopsoas hematoma: In the setting of anticoagulation, undergoing Lovenox bridge for GI procedures. Her pain is stable, size was stable on repeat CT and hemoglobin remained stable. Continue supportive care per internal medicine.
2. Portal vein thrombosis: Diagnosed many years ago, though by report does not sound like it was an acute portal vein thrombosis without abdominal pain or elevated LFTs. She does not think that she followed up with hematology for hypercoagulable
state. I personally reviewed CT angiogram with radiology, no portal vein thrombosis is present now. It is difficult to say the risk-benefit balance of restarting anticoagulation, definitely would hold for at least a week given her spontaneous
hematoma. We discussed it would be valuable if she were to see hematology as an outpatient to evaluate for hypercoagulable states, and if negative may not need long-term anticoagulation anyway.
3. Diverticulitis: 2 episodes this year, though uncomplicated, both responded well to antibiotics, and had significant duration without symptoms in between. Her colonoscopy a year ago was negative, and underlying malignancy seems very unlikely.
We discussed that there is no urgent indication to repeating colonoscopy now given low suspicion including colonoscopy last year. Once her hematoma symptoms have resolved she will discuss with Dr. Martinez about possibly repeating in the future.
We will sign off for now, though please call back with any further questions.
-
-
Thank you for consultation and allowing me to participate in the patient's care. Please call the documentation clerk GI physician during the after hours with any questions or concerns.
--- NOTE | 2024-08-30 13:54 | CON.CAR ---
Addendum entered and electronically signed by Renny Chawdick DO 08/30/24 17:36:
I saw and examined the patient.
The Chief Cardiopulmonary Technologist's note was reviewed and I agree with the note.
Comment:
Plan:
She has been lost to cardiology follow-up for 8 years.
Episodes of PAfib, cont rate control strategy
Check echo
Pt had been on anticoagulation for portal vein thrombosis managed by PCP.
Would also be indicated for anticoagulation for paroxysmal atrial fibrillation.
Anticoagulation is currently held given retroperitoneal hematoma. Patient has received vitamin K and INR is improved to 1.4 on 08/30.
GI evaluation notes that the patient no longer has portal vein thrombosis and they recommend hematology evaluation for hypercoagulable state. The patient may not ultimately need anticoagulation for her portal vein thrombosis history. She would
however require it eventually once able, for paroxysmal atrial fibrillation.
Monitor H/H.
Original Note:
Consultation
Consultation Request
Date/Time Consultation Requested: 08/30/24
Date/Time Consultation Performed: 08/30/24
Requesting Provider: Dr. Hunt
Performing Provider: Dr. Chadwick
Reason for Consultation: Afib
Medical History
-
History of Present Illness:
Patient came to [facility] Friday evening with acute onset left groin pain and was found to have a retroperitoneal hematoma prompting admission and cardiology is now consulted for evidence of A-fib on telemetry. Patient had last seen cardiology in
2016, but did not recall. Patient also did not recall that she has a history of paroxysmal atrial fibrillation that was diagnosed in 2017 in the setting of gastric sleeve surgery at [facility]. At that time patient was seen by cardiology at [facility] and
they felt that since patient already had a lifelong indication for warfarin for her history of a portal vein thrombosis that no intervention was made and when she followed up with our office 05/23/2017 she opted to continue with rate control in the
form of Lopressor 12.5 mg BID and she was in SR at that time. Since then patient has not followed up with cardiology, but has been following with GI due to 2 episodes of diverticulitis within the last year. Patient was scheduled to have an
outpatient colonoscopy this week and her PCP was managing her Lovenox bridge. Patient was told to start Lovenox bridge the day after her first missed dose of warfarin, patient reports taking her first warfarin injection on the morning of Friday,
08/27/2024. Patient started with abrupt onset left groin pain on the night of 08/28/2024 and in the ER was found to have a retroperitoneal hematoma. Cardiology is now consulted for evidence of paroxysmal A-fib on the monitor which patient
is asymptomatic with. Patient denies CP, SOB or palpitations.
PMH:
Chronic warfarin OAC for history of portal vein thrombosis
h/o portal vein thrombosis
h/o Diverticulitis
Was scheduled for outpatient colonoscopy at [facility] prompting Lovenox bridge as above
Paroxysmal A-fib, diagnosed 2016
h/o mildly dilated ascending aorta at 4.[address] 2016
Past Medical History
Past Medical History: Other (In HPI)
Past Surgical History: Cholecystectomy, Orthopedic, Tonsilectomy and Other (Gastric sleeve at [facility] 05/2017)
Social History
Tobacco: Former Smoker
Alcohol: Occasional
Drug: None
Personal:
Living: With Family
Family History
Family History: CAD and Other (CVA)
Allergies / Home Medications
Allergy/AdvReac Type Severity Reaction Status Date / Time
itraconazole [From Sporanox] Allergy Rash Verified 06/21/24 21:41
Penicillins Allergy Rash Verified 06/21/24 21:41
vancomycin Allergy Rash Verified 06/21/24 21:41
�Medication �Instructions �Recorded �Confirmed �Type
ezetimibe 10 mg-simvastatin 10 mg 1 ea PO DAILY 12/04/12 08/29/24 History
tablet (Vytorin)
multivitamin (Yqa-Hzjxnv-Lvycf 1 ea PO DAILY 12/04/12 08/29/24 History
tablet)
sertraline 100 mg tablet 150 mg PO DAILY 12/04/12 08/29/24 History
warfarin 5 mg tablet (Jantoven) 5 mg PO DAILY ##0 10/31/14 08/29/24 Rx
celecoxib 200 mg capsule 200 mg PO DAILY 08/29/24 08/29/24 History
enoxaparin 80 mg/0.8 mL 80 mg SC Q12H 08/29/24 08/29/24 History
subcutaneous syringe (Lovenox)
losartan 25 mg tablet 25 mg PO DAILY 08/29/24 08/29/24 History
metoprolol tartrate 25 mg tablet 12.5 mg PO BID 08/29/24 08/29/24 History
omeprazole 40 mg capsule,delayed 40 mg PO DAILY 08/29/24 08/29/24 History
release
trazodone 50 mg tablet 50 mg PO HS 08/29/24 08/29/24 History
Review of Systems
-
History Source: Patient and Family ()
All other systems: Negative unless noted
Physical Exam
Vital Signs
Temp Pulse Resp BP Pulse Ox
99.4 F 120 16 107/73 99
08/30/24 11:00 08/30/24 11:00 08/30/24 11:00 08/30/24 11:00 08/30/24 11:00
GEN: NAD. AAOx3
HEENT: supple, anicteric, mmm
LUNGS: CTA, no wheezes/rales
CV: SR on tele. Reg, S1/S2, no murmur
ABD: soft, BS+, ND
EXT: No edema B/L
NEURO: Gross non-focal
SKIN: No rash
Lab Results
08/30/24 05:14
08/30/24 05:14
Impression / Plan
-
PCP: Erika OWENS
Card: Dr. Watson, last seen 2016
Impression:
Admitted with left groin pain and retroperitoneal hematoma 08/29/2024
Chronic warfarin OAC for history of portal vein thrombosis
Therapeutic INR on admission
Outpatient Lovenox bridge starting 08/19/2024
h/o portal vein thrombosis
Diverticulitis
Was scheduled for outpatient colonoscopy at [facility] prompting Lovenox bridge as above
Paroxysmal A-fib, diagnosed 2016
h/o mildly dilated ascending aorta at 4.[address] 2016
Echo 02/2016: EF 55 to 60%
Plan:
-Patient came to [facility] Friday evening with acute onset left groin pain and was found to have a retroperitoneal hematoma prompting admission and cardiology is now consulted for evidence of A-fib on telemetry. Patient had last seen cardiology in
2016, but did not recall. Patient also did not recall that she has a history of paroxysmal atrial fibrillation that was diagnosed in 2017 in the setting of gastric sleeve surgery at [facility]. At that time patient was seen by cardiology at [facility] and
they felt that since patient already had a lifelong indication for warfarin for her history of a portal vein thrombosis that no intervention was made and when she followed up with our office 05/23/2017 she opted to continue with rate control in the
form of Lopressor 12.5 mg BID and she was in SR at that time. Since then patient has not followed up with cardiology, but has been following with GI due to 2 episodes of diverticulitis within the last year. Patient was scheduled to have an
outpatient colonoscopy this week and her PCP was managing her Lovenox bridge. Patient was told to start Lovenox bridge the day after her first missed dose of warfarin, patient reports taking her first warfarin injection on the morning of Friday,
08/27/2024. Patient started with abrupt onset left groin pain on the night of 08/28/2024 and in the ER was found to have a retroperitoneal hematoma. Cardiology is now consulted for evidence of paroxysmal A-fib on the monitor which patient
is asymptomatic with. Patient denies CP, SOB or palpitations.
-ECG reviewed by me shows A-fib with RVR, but on deep review of telemetry the patient is having episodes of A-fib and NSR. No significant pauses noted with rhythm change. Repeat ECG in AM, ordered by me
-Check echo in a.m., ordered by me
-INR was 2.5 on admission. Patient was given vitamin K 5 mg PO x 1 on 08/28/2024 and INR is down to 1.43 on 08/30/2024.
-INR's are managed by PCP and patient reports lab draws [facility] with an INR goal of 2-3 and reports she typically has an INR drawn every 3 to 4 weeks. Patient has bridge to other times in the last several years without any adverse outcome.
-Patient with known paroxysmal A-fib back in 2017, but was lost to follow-up with cardiology at that time. Patient is now agreeable to cardiology follow-up and so we made a plan to continue with rate control therapy for now including increasing
Lopressor to 25 mg BID. Would not pursue a rhythm control strategy at this time due to inability to anticoagulate
-Anticoagulation remains on hold. Last dose of warfarin was 08/26/2024 and last dose of Lovenox was 08/28 AM.
-Hgb has been stable and patient has not required transfusion. Hopefully we can resume OAC in the next 24 to 48 hours.
-GI consultation reviewed, on most recent CT scan there is no evidence of portal vein thrombosis and so no indication for OAC from a GI standpoint, regardless patient requires OAC at this point for paroxysmal A-fib. Patient has never seen
hematology either here or at [facility] as she recalls. Her father did with history of stroke, but no other strong FH of hypercoagulable condition.
--- NOTE | 2024-08-30 14:39 | PTOTSP ---
Speech Therapy Swallowing Assessment
No overt signs of oral/pharyngeal dysphagia or aspiration. Patient reports daily heartburn and occasional instances of regurgitation, therefore, esophagus is likely contributing to pill dysphagia she experienced this am especially as she reports the
pill was stuck in sternal region. Also instructed patient o speak to her MD with questions she posed regarding timing of reflux meds. Otherwise, from speech therapy standpoint, oral/pharyngeal swallow deemed wfl. Issues appear esophageal in nature.
Recommend
1. Regular solids and thin liquids, avoiding overly dry/dense solids
2. Cyclic ingestion alternating liquid after every 2-3 bites of solid.
3. Slow rate (she reports being a fast eater). Rest breaks as needed
4. Take pills with plenty of liquid
5. Slow rate and chew food thoroughly
6. Reflux precautions/remain upright for at least 30 minutes after meals.
No further ST indicated.
--- NOTE | 2024-08-30 16:04 | CON.ID ---
Consultation
-
Date/Time Consultation Requested: 08/30/24 12:05
Date/Time Consultation Performed: 08/30/24 16:04
Requesting Provider: Dr Hunt
Performing Provider: Dr Sims
Reason for Consultation: moderate severe sigmoid diverticulitis
Chief Complaint / Past History
Chief Complaint
left groin pain
History of Present Illness
Ms Parmar is a 79 year old female with h/o portal vein thrombosis on lovenox bridge back to warfarin who presented here yesterday for acute onset of L groin pain 'excruciating' without radation, no nausea, vomiting, fevers or chills. Also with a
previous episode of diverticulitis in June 2024 treated with levofloxacin and metronidazole - competed the course with resolution of symptoms. Then early july had relapse of symptoms went to [facility] ER and CAT scan again with uncomplicated
diverticulitis - underwent course of treatment and completed it - she thinks with cefuroxime
In the emergency department she was afebrile, blood pressure 156/90, pulse 67. Hemoglobin 10.2, white count was 8.2 and a platelet count of 289. Electrolytes BUN/creatinine were all in normal range. INR remains elevated at 2.5. Peripheral
ultrasound is negative for DVT in the LE. CTA of the abdomen pelvis: large hematoma centered in the left iliopsoas muscle measuring approximately 6 x 8 x 14 cm. There is adjacent extraperitoneal hemorrhage in the left pelvis with which is a
possible small amount of intraperitoneal hemorrhage. There is also no evidence of active bleeding identified in the arterial phase. On the venous phase and appears to be 2 small foci of active bleeding. There is also ongoing active sigmoid
diverticulitis with extensive inflammatory changes that is abating the fundus of the uterus with loss of distinction
Past History
Additional Past Medical History:
GERD, HTN and Other (Portal vein thrombosis)
Additional Past Surgical History:
Cholecystectomy, Orthopedic (Left total knee replacement, left total hip arthroplasty) and Tonsilectomy
Allergy History:
itraconazole [From Sporanox] Allergy (Verified 06/21/24 21:41)
Rash
Penicillins Allergy (Verified 06/21/24 21:41)
Rash
vancomycin Allergy (Verified 06/21/24 21:41)
Rash
Medications Reviewed: Yes
Social History
Tobacco: Non-Smoker
Alcohol: None
Drug: None
Family History
Family History: Not Pertinent
Review of Systems
Review of Systems
General: Negative Fever or Chills
All systems: All other systems were reviewed and were negative
Vital Signs
Temp Pulse Resp BP Pulse Ox
98.5 F 81 16 103/52 96
08/30/24 15:28 08/30/24 15:28 08/30/24 15:28 08/30/24 15:28 08/30/24 15:28
Physical Exam
Physical Exam
Constitutional: No Acute Distress
Cardiovascular: Regular Rate and S1/S2; Negative Murmur or Rub
Pulmonary: Clear and Symmetric; Negative Wheezes, Rales or Rhonchi
Gastrointestinal: Soft, Tender (RLQ), Non Distended and Normal Bowel Sounds
Skin: Warm and Dry; Negative Rash or Jaundice
Lab / Diagnostic Study Results
08/30/24 05:14
08/30/24 05:14
Abs Immat Gran (auto) 0.0 10^3/uL (0-0.05) 08/28/24 22:13
Absolute Neuts (auto) 7.4 10^3/uL (1.4-6.5) H 08/28/24 22:13
Absolute Lymphs (auto) 0.4 10^3/uL (1.2-3.4) L 08/28/24 22:13
Absolute Monos (auto) 0.3 10^3/uL (0.1-0.6) 08/28/24 22:13
Absolute Basos (auto) 0.0 10^3/uL (0-0.2) 08/28/24 22:13
Immature Gran % 0.5 % (0-0.5) 08/28/24 22:13
Neutrophils % 90.7 % (42.2-75.2) H 08/28/24 22:13
Lymphocytes % 4.7 % (20.5-51.1) L 08/28/24 22:13
Monocytes % 4.0 % (1.7-9.3) 08/28/24 22:13
Eosinophils % 0.0 % (0-6) 08/28/24 22:13
Basophils % 0.1 % (0-2) 08/28/24 22:13
PT 17.7 Sec (11.4-14.6) H 08/30/24 05:14
INR 1.43 08/30/24 05:14
Microbiology Results
Micro:
08/29/24 05:21 MRSA Screen - Final
Nose No Methicillin Resistant Staphylococcus aureus isolated.
Assessment / Plan
Persistent Diverticulitis
large hematoma in the left iliopsoas
H/o portal vein thrombosis - years ago - resolved
Reported allergy to penicillin - rash
- most recent course of cefuroxime by report, also note levofloxacin and metronidazole in June 2024
- inflammatory marked of limited use additional cause of inflammation - retroperitoneal hematoma
- QTc 428
- start levofloxacin/metronidazole plan 14 day course
- close follow up of INR if warfarin is ultimately restarted
- follow up with colorectal surgery given recurrence x3
[2024-08-30] MEDS: LEVAQUIN 750 MG PO (19:21)
[2024-08-30] MEDS: DESYREL 50 MG PO (20:41)
[2024-08-30] MEDS: DESYREL PO (20:42)
[2024-08-30] MEDS: FLAGYL 500 MG PO (20:44)
[2024-08-31 03:30] VITALS: BP 136/63
[2024-08-31] MEDS: ROXICODONE 5 MG PO (03:47)
[2024-08-31 06:29] LABS: INR 1.35
[2024-08-31 06:31] LABS: Hematocrit 23.7 % (37.0-47.0); Hemoglobin 7.7 g/dL (12.0-16.0); Mean Corp Hgb Conc. 32.5 g/dL (33.0-37.0); Mean Corpuscular Hgb 25.2 pg (27.0-31.0); Mean Corpuscular Volume 77.7 fL (81.0-99.0); Mean Platelet Volume 10.1 fL (7.4-10.4); Platelet Count 182 10^3/uL (130-400); Red Blood Cell Count 3.05 10^6/uL (4.20-5.40); Red Cell Dist. Width 18.6 % (11.5-14.5); White Blood Cell Count 5.6 10^3/uL (4.8-10.8)
[2024-08-31 06:51] LABS: Blood Urea Nitrogen 13 mg/dl (7-17); Calcium 8.4 mg/dl (8.4-10.2); Carbon Dioxide 24 mmol/L (22-30); Chloride 108 mmol/L (98-107); Estimated Creatinine Clearance 62 ml/min; Glucose 94 mg/dl (70-99); Magnesium 2.2 mg/dl (1.6-2.3); Phosphorus 3.2 mg/dl (2.5-4.5); Potassium 4.3 mmol/L (3.5-5.1); Sodium 137 mmol/L (135-145); eGFR > 60.00
--- NOTE | 2024-08-31 07:17 | W.PN.HOSP.TC ---
Today's Communication/Plan
-
monitor H&H
rate control as per Cardio
protonix increased to twice a day
maalox prn
diet advanced to regular
Assessment / Plan
Assessment / Plan
Physical Exam
General: No acute distress appears comfortable at this time
HEENT: NormoCephalic, Anicteric, Moist mucous membranes and Atraumatic
Respiratory: Clear
Cardiac: S1/S2 and Regular Rhythm
GI: Soft, Non Distended, Normal Bowel Sounds, non-Tender
Musculoskeletal: No Clubbing, No Cyanosis and No Edema
Skin: Warm
Neuro: AO x 3 conversant coherent
Psych: Calm
77F hx portal vein thrombosis on Coumadin HTN Depression Anxiety GERD HLD ongoing persistent intermittent treatments for diverticulitis past month here for left-sided groin pain found to have iliopsoas hematoma. Prior to presentation patient had
been off Coumadin, on lovenox bridge, in preparation for outpt EGD/colonoscopy.
#Rp hematoma centered in the left iliopsoas muscle - large hematoma but no arterial bleed. Small bleeding foci noted. She is hemodynamically stable. Hgb is normal and unchanged from june. Appears to be spontaneous without trauma. However she
has been taking lovenox 80mg sc q 12 since discontinuation of Coumadin while preparing for colonoscopy/egd at [facility]. Anticoagulation likely contributing
- Tele admit
- d/w IR, no need for intervention, cont hold AC
- Clear liquid diet advanced to regular
- H&H dipped from 9's to 7's range however suspect dilutional (all cell lines down following start IVF) repeat H&H stable
- INR since improved <2 following Vit K
- pain control and antimetics
#paroxysmal afib
#Afib RVR
developed afib rvr during stay improved with fluid boluses and continuation home metoprolol
has hx of afib dx years ago but loss to cardiology follow up
Cardio eval appreciated home metoprolol increased to 25 mg bid
ECHO appreciated EF 59% aortic root and descending aorta noted mildly dilated
# Diverticulitis - CT scan shows active inflammatory process although patient appears to have improved symptomatically since 08/23 until occurence of hematoma. She was not discharged on flagyl due to it's potentiating effect on warfarin.
#Hx portal vein thrombosis (not seen in recent imaging)
- ID eval appreciated empiric meropenem switched to Levaquin and Flagyl
- GI eval appreciated
- ppi iv daily
- continue metoprolol with hold parameters
#GERD
IV protonix increased to BID
maalox prn
DVT PPX - SCDs
Code status - full code
I spent a total of 45 minutes with the patient or on the floor. More than 50% of this time involved counseling and coordination of care.
Anticipated Discharge: 24 - 48 hours
Subjective/Interval History
-
Date of Service: August 31, 2024
No acute distress appears comfortable at this time. Reports increased reflux gerd heartburn with meals. Notes improvement with prn maalox.
Objective Data
-
Labs:
Laboratory Results
08/31/24
05:28
WBC 5.6
Hgb 7.7 L
Hct 23.7 L
Plt Count 182 D
PT 17.0 H
INR 1.35
Sodium 137
Potassium 4.3
Chloride 108 H
Carbon Dioxide 24
BUN 13
Creatinine 0.7
Glucose 94
Calcium 8.4
Vital Signs:
Vital Signs
Temp Pulse Resp BP Pulse Ox
97.6 F 67 16 136/63 100
08/31/24 03:30 08/31/24 03:30 08/31/24 03:30 08/31/24 03:30 08/31/24 03:30
I&O
08/30/24 08/31/24 09/01/24
06:59 06:59 06:59
Intake Total 1560 / 1560 480 / 480
Balance 1560 / 1560 480 / 480
[2024-08-31 07:46] VITALS: BP 116/62
[2024-08-31] MEDS: ZOLOFT 150 MG PO (08:26)
[2024-08-31] MEDS: LEVAQUIN 750 MG PO (08:26)
[2024-08-31] MEDS: FLAGYL 500 MG PO ×2 (08:26→21:17)
[2024-08-31] MEDS: LOPRESSOR 12.5 MG PO (08:26)
[2024-08-31] MEDS: PROTONIX IV 40 MG IV ×2 (08:27→21:18)
[2024-08-31] MEDS: NSS (PRESERVATIVE FREE) 10 ML IV ×2 (08:27→21:18)
[2024-08-31] MEDS: MAALOX 30 ML PO (09:45)
[2024-08-31 10:02] LABS: Hematocrit 23.6 % (37.0-47.0); Hemoglobin 7.7 g/dL (12.0-16.0)
[2024-08-31] MEDS: MIRALAX 17 GRAMS PO (11:10)
[2024-08-31 11:26] VITALS: BP 117/68
--- NOTE | 2024-08-31 13:09 | W.PN.ID1 ---
Date of Service
Date of Service: August 31, 2024
Today's Communication
- c/w levofloxacin/metronidazole plan 14 day course 08/28-09/10
- close follow up of INR if warfarin is ultimately restarted
- follow up with colorectal surgery given recurrence x3
Assessment / Plan
Persistent Diverticulitis
large hematoma in the left iliopsoas
H/o portal vein thrombosis - years ago - resolved
Reported allergy to penicillin - rash
- most recent course of cefuroxime by report, also note levofloxacin and metronidazole in June 2024
- inflammatory marked of limited use additional cause of inflammation - retroperitoneal hematoma
- QTc 428
- c/w levofloxacin/metronidazole plan 14 day course 08/28-09/10
- close follow up of INR if warfarin is ultimately restarted
- follow up with colorectal surgery given recurrence x3
Chief Complaint
-: Other (diverticulitis)
Subjective / Review of Systems
afebrile
bp stable
tolerating current therapies
abdominal pain resolved
psoas pain (with flexion of hip) ongoing
Vital Signs / Physical Exam
Vital Signs
Vital Signs
Temp Pulse Resp BP Pulse Ox
99.1 F 71 14 117/68 97
08/31/24 11:26 08/31/24 11:26 08/31/24 11:26 08/31/24 11:26 08/31/24 11:26
Physical Exam
Constitutional: No Acute Distress
Cardiovascular: Regular Rate and S1/S2; Negative Murmur or Rub
Pulmonary: Clear and Symmetric; Negative Wheezes or Rales
Gastrointestinal: Soft, Non Tender (with deep palpation in all quadrants), Non Distended and Normal Bowel Sounds
Skin: Warm and Dry; Negative Rash or Jaundice
Neurological: Awake
Objective Data
Lab Data
Lab Results
08/31/24 09:43
08/31/24 05:28
PT 17.0 Sec (11.4-14.6) H 08/31/24 05:28
INR 1.35 08/31/24 05:28
Estimated Creat Clear 62 ml/min 08/31/24 05:28
Total Bilirubin 0.6 mg/dl (0.2-1.3) 08/28/24 22:13
AST 19 U/L (14-36) 08/28/24 22:13
ALT 14 U/L (0-35) 08/28/24 22:13
Alkaline Phosphatase 97 U/L (38-126) 08/28/24 22:13
Most recent labs reviewed.
Micro Results:
08/29/24 05:21 MRSA Screen - Final
Nose No Methicillin Resistant Staphylococcus aureus isolated.
[2024-08-31 15:34] VITALS: BP 118/66
--- NOTE | 2024-08-31 17:06 | W.PN.CARDCBS ---
Addendum entered and electronically signed by Brandt Cabello MD 08/31/24 18:01:
I saw and examined the patient.
The Director Of Land [employer]'s note was reviewed and I agree with the note.
Comment: Briefly, 79-year-old woman past medical history of portal vein thrombosis and paroxysmal atrial fibrillation on warfarin who presents with spontaneous retroperitoneal bleed at the time of Lovenox bridging.
Maintaining sinus rhythm here
TTE with NL LV function and no high grade valve disease
Cardiology is asked to comment on her anticoagulation
Agree with holding warfarin given retroperitoneal hematoma
Patient is interested in transition to DOAC. Given history of portal vein thrombosis would defer to hematology, may benefit from hypercoagulable work up.
Treatment of recurrent diverticulitis by GI and ID
Original Note:
Today's Communication / Plan
-
Consider hematology evaluation, not sure if warfarin or Eliquis is the right choice with h/o portal vein thrombosis that is no longer seen on imaging and now with lifelong indication for OAC with Afib
Impression / Plan
-
PCP: Erika OWENS
Card: Dr. Watson, last seen 2016
Impression:
Admitted with left groin pain and retroperitoneal hematoma 08/29/2024
Chronic warfarin OAC for history of portal vein thrombosis
Therapeutic INR on admission
Outpatient Lovenox bridge starting 08/19/2024
h/o portal vein thrombosis
Diverticulitis
Was scheduled for outpatient colonoscopy at [facility] prompting Lovenox bridge as above
Paroxysmal A-fib, diagnosed 2016
h/o mildly dilated ascending aorta at 4.[address] 2017
Echo 02/2016: EF 55 to 60%
Echo 08/31/2024: EF 59%, normal diastolic function, normal RV size and function, mild aortic regurgitation, aortic root and the ascending aorta are dilated, sinus of Valsalva 4.1 cm, sinotubular junction 3.5 cm, ascending aorta 4.2 cm
Plan:
-ECG from 08/31/2024 reviewed by me and is SR. Patient has been paroxysmal with A-fib during this admission and no significant pauses have been noted. Patient initially diagnosed with A-fib back in 2017, but was then lost to follow-up.
-Outpatient dose of Lopressor increased to 25 mg BID by me on 08/31/2024
-EF stable by echo without significant valve disease
-INR was 2.5 on admission plus patient was bridging with therapeutic Lovenox 80 mg SQ q12 hours. Patient was given vitamin K 5 mg PO x 1 on 08/28/2024 and INR is down to 1.35 on 08/31/2024.
-As an outpatient, INR's are managed by PCP and patient reports lab draws at [facility] with an INR goal of 2-3 and reports she typically has an INR drawn every 3 to 4 weeks. Patient has bridge to other times in the last several years without any
adverse outcome.
-Hgb has been stable and patient has not required transfusion. Hopefully we can resume OAC in the next 24 to 48 hours.
-GI consultation reviewed, on most recent CT scan there is no evidence of portal vein thrombosis and so no indication for OAC from a GI standpoint, regardless patient requires OAC at this point for paroxysmal A-fib. Patient has never seen
hematology either here or at [facility] as she recalls. Her father did with history of stroke, but no other strong FH of hypercoagulable condition. Would recommend hematology evaluation to determine if hypercoagulable workup is appropriate and also
to decide on appropriate OAC regimen i.e. warfarin vs Eliquis
HPI: Patient came to [facility] Friday evening with acute onset left groin pain and was found to have a retroperitoneal hematoma prompting admission and cardiology is now consulted for evidence of A-fib on telemetry. Patient had last seen cardiology in
2016, but did not recall. Patient also did not recall that she has a history of paroxysmal atrial fibrillation that was diagnosed in 2017 in the setting of gastric sleeve surgery at [facility]. At that time patient was seen by cardiology at [facility] and
they felt that since patient already had a lifelong indication for warfarin for her history of a portal vein thrombosis that no intervention was made and when she followed up with our office 05/23/2017 she opted to continue with rate control in the
form of Lopressor 12.5 mg BID and she was in SR at that time. Since then patient has not followed up with cardiology, but has been following with GI due to 2 episodes of diverticulitis within the last year. Patient was scheduled to have an
outpatient colonoscopy this week and her PCP was managing her Lovenox bridge. Patient was told to start Lovenox bridge the day after her first missed dose of warfarin, patient reports taking her first warfarin injection on the morning of Friday,
08/27/2024. Patient started with abrupt onset left groin pain on the night of 08/28/2024 and in the ER was found to have a retroperitoneal hematoma. Cardiology is now consulted for evidence of paroxysmal A-fib on the monitor which patient
is asymptomatic with. Patient denies CP, SOB or palpitations.
Progress Note - A/C Tech
Subjective
Date of Service: August 31, 2024
No palpitations
Objective
Labs:
08/31/24 09:43
08/31/24 05:28
Labs
Hgb 7.7 g/dL (12.0-16.0) L 08/31/24 09:43
Hct 23.6 % (37.0-47.0) L 08/31/24 09:43
Plt Count 182 10^3/uL (130-400) D 08/31/24 05:28
PT 17.0 Sec (11.4-14.6) H 08/31/24 05:28
INR 1.35 08/31/24 05:28
Sodium 137 mmol/L (135-145) 08/31/24 05:28
Potassium 4.3 mmol/L (3.5-5.1) 08/31/24 05:28
BUN 13 mg/dl (7-17) 08/31/24 05:28
Creatinine 0.7 mg/dL (0.6-1.0) 08/31/24 05:28
Glucose 94 mg/dl (70-99) 08/31/24 05:28
Vital Signs and I&O:
Vital Signs
Temp Pulse Resp BP Pulse Ox
99.5 F 75 14 118/66 98
08/31/24 15:34 08/31/24 15:34 08/31/24 15:34 08/31/24 15:34 08/31/24 15:34
Vital Signs
Temp Pulse Resp BP Pulse Ox
99.5 F 75 14 118/66 98
08/31/24 15:34 08/31/24 15:34 08/31/24 15:34 08/31/24 15:34 08/31/24 15:34
Intake & Output
08/29/24 08/30/24 08/31/24 09/01/24
06:59 06:59 06:59 06:59
Intake Total 1560 / 1560 480 / 480 720 / 720
Balance 1560 / 1560 480 / 480 720 / 720
Physical Exam
Physical Exam
GEN: NAD. AAOx3
HEENT: mmm
LUNGS: RA.
CV: SR on tele.
EXT: No edema B/L
NEURO: Gross non-focal
SKIN: No rash
[2024-08-31 19:00] VITALS: BP 109/57
--- NOTE | 2024-08-31 20:00 | CHAP ---
Fr. Raghu Couch of [facility] in [place] heard Shanti's confession, gaver her Holy Communion and anointed her. Exact time uncertain.
[2024-08-31] MEDS: SENOKOT-S 1 TABLET PO (21:17)
[2024-08-31] MEDS: DESYREL 50 MG PO (21:17)
[2024-08-31] MEDS: LOPRESSOR 25 MG PO (21:18)
[2024-08-31] MEDS: MORPHINE SULFATE 4 MG IV (21:26)
[2024-08-31 23:00] VITALS: BP 100/49
[2024-09-01 03:00] VITALS: BP 120/60
[2024-09-01 06:01] LABS: Hematocrit 23.4 % (37.0-47.0); Hemoglobin 7.4 g/dL (12.0-16.0); Mean Corp Hgb Conc. 31.6 g/dL (33.0-37.0); Mean Corpuscular Hgb 24.7 pg (27.0-31.0); Mean Corpuscular Volume 78.3 fL (81.0-99.0); Mean Platelet Volume 10.9 fL (7.4-10.4); Platelet Count 188 10^3/uL (130-400); Red Blood Cell Count 2.99 10^6/uL (4.20-5.40); Red Cell Dist. Width 18.7 % (11.5-14.5); White Blood Cell Count 4.4 10^3/uL (4.8-10.8)
[2024-09-01 06:09] LABS: INR 1.25; PT 15.9 Sec (11.4-14.6)
--- NOTE | 2024-09-01 06:20 | W.PN.HOSP.TC ---
Today's Communication/Plan
-
trend H&H
CRS Hematology eval
space out morning meds as feasible to avoid exacerbation GERD
Assessment / Plan
Assessment / Plan
Physical Exam
General: No acute distress appears comfortable at this time
HEENT: NormoCephalic, Anicteric, Moist mucous membranes and Atraumatic
Respiratory: Clear
Cardiac: S1/S2 and Regular Rhythm
GI: Soft, Non Distended, Normal Bowel Sounds, non-Tender
Musculoskeletal: No Clubbing, No Cyanosis and No Edema
Skin: Warm
Neuro: AO x 3 conversant coherent
Psych: Calm
77F hx portal vein thrombosis on Coumadin HTN Depression Anxiety GERD HLD ongoing persistent intermittent treatments for diverticulitis past month here for left-sided groin pain found to have iliopsoas hematoma. Prior to presentation patient had
been off Coumadin, on lovenox bridge, in preparation for outpt EGD/colonoscopy.
#Rp hematoma centered in the left iliopsoas muscle - large hematoma but no arterial bleed. Small bleeding foci noted. She is hemodynamically stable. Hgb is normal and unchanged from june. Appears to be spontaneous without trauma. However she
has been taking lovenox 80mg sc q 12 since discontinuation of Coumadin while preparing for colonoscopy/egd at [facility]. Anticoagulation likely contributing
- Tele admit
- d/w IR, no need for intervention, cont hold AC
- Clear liquid diet advanced to regular
- H&H dipped from 9's to 7's range however suspect dilutional (all cell lines down following start IVF) repeat H&H stable
- INR since improved <2 following Vit K
- pain control and antimetics
- Hematology Eval requested regarding need for anticoagulation and/or hypercoagulable work up
#paroxysmal afib
#Afib RVR
developed afib rvr during stay improved with fluid boluses and continuation home metoprolol
has hx of afib dx years ago but loss to cardiology follow up
Cardio eval appreciated home metoprolol increased to 25 mg bid
ECHO appreciated EF 59% aortic root and descending aorta noted mildly dilated
# Diverticulitis - CT scan shows active inflammatory process although patient appears to have improved symptomatically since 08/23 until occurence of hematoma. She was not discharged on flagyl due to it's potentiating effect on warfarin.
#Hx portal vein thrombosis (not seen in recent imaging)
- ID eval appreciated empiric meropenem switched to Levaquin and Flagyl
- GI eval appreciated
- ppi iv daily
- continue metoprolol with hold parameters
-CRS eval requested
#GERD
IV protonix increased to BID
maalox prn
DVT PPX - SCDs
Code status - full code
I spent a total of 45 minutes with the patient or on the floor. More than 50% of this time involved counseling and coordination of care.
Anticipated Discharge: 24 - 48 hours
Subjective/Interval History
-
Date of Service: September 01, 2024
No acute distress, episodic heartburn discomfort requiring prn maalox
Objective Data
-
Labs:
Laboratory Results
09/01/24
05:21
WBC 4.4 L
Hgb 7.4 L
Hct 23.4 L
Plt Count 188
PT 15.9 H
INR 1.25
Sodium Pending
Potassium Pending
Chloride Pending
Carbon Dioxide Pending
BUN Pending
Creatinine Pending
Glucose Pending
Calcium Pending
Vital Signs:
Vital Signs
Temp Pulse Resp BP Pulse Ox
97.7 F 65 16 120/60 99
09/01/24 03:00 09/01/24 03:00 09/01/24 03:00 09/01/24 03:00 09/01/24 03:00
I&O
08/30/24 08/31/24 09/01/24
06:59 06:59 06:59
Intake Total 1560 / 1560 480 / 480 720 / 720
Balance 1560 / 1560 480 / 480 720 / 720
[2024-09-01 06:23] LABS: Blood Urea Nitrogen 10 mg/dl (7-17); Calcium 8.8 mg/dl (8.4-10.2); Carbon Dioxide 23 mmol/L (22-30); Chloride 108 mmol/L (98-107); Estimated Creatinine Clearance 62 ml/min; Glucose 103 mg/dl (70-99); Phosphorus 3.2 mg/dl (2.5-4.5); Potassium 4.3 mmol/L (3.5-5.1); Sodium 138 mmol/L (135-145); eGFR > 60.00
[2024-09-01 07:16] VITALS: BP 122/55
[2024-09-01] MEDS: FLAGYL 500 MG PO ×2 (08:01→20:43)
[2024-09-01] MEDS: LOPRESSOR 25 MG PO ×2 (08:01→20:44)
[2024-09-01] MEDS: ZOLOFT 150 MG PO (08:01)
[2024-09-01] MEDS: SENOKOT-S 1 TABLET PO ×2 (08:01→20:46)
[2024-09-01] MEDS: LEVAQUIN 750 MG PO (08:01)
[2024-09-01] MEDS: PROTONIX IV 40 MG IV ×2 (08:02→20:45)
[2024-09-01] MEDS: NSS (PRESERVATIVE FREE) 10 ML IV ×2 (08:02→20:45)
[2024-09-01] MEDS: MIRALAX 17 GRAMS PO (08:02)
[2024-09-01 08:21] LABS: Iron 40 ug/dl (37-170)
[2024-09-01 08:31] LABS: Percent Saturation 13 % (20-50); Total Iron Binding Capacity 289 ug/dl (265-497)
--- NOTE | 2024-09-01 09:07 | CON.ONC ---
Impression
Impression
Iliopsoas hematoma secondary to anticoagulation
Remote history of portal vein thrombosis
Paroxysmal atrial fibrillation
Plan
Plan
Obviously anticoagulation is on hold appropriately with active iliopsoas hematoma and bleeding.
Portal vein thrombosis was documented in 2014 so was at least 10 years from that diagnosis.
Typical portal vein thrombosis anticoagulation treatment is only for 3 to 6 months depending on the specifics of the diagnosis.
At this point, no reason to resume anticoagulation from the perspective of the portal vein thrombosis.
No clinical evidence of a specific hypercoagulable state. No indication for doing inpatient or outpatient hypercoagulable testing.
At this point, only role for anticoagulation is paroxysmal atrial fibrillation.
Discussed with cardiology, when hematoma has stabilized and anticoagulation is reasonable to resume, Eliquis would be a reasonable option going forward.
Patient History
History of Present Illness
CC: Anticoagulation recommendations with previous portal vein thrombosis
HPI: 79 year old female with h/o paroxysmal atrial fibrillation and remote history of prior portal vein thrombosis (prior to 2014) chronically on warfarin anticoagulation who presented 08/29 with excruciating left groin pain. She previously was
treated [facility] with diagnosis of diverticulitis and discharged 08/23 to complete a antibiotic course. Plans were to undergo EGD and colonoscopy evaluation and therefore she was transitioned off of warfarin and started on Lovenox 80 mg SQ
Q12 as a 'Lovenox bridge'. CT of the abdomen/pelvis reveals a large hematoma in that location of the left iliopsoas muscle measuring 6.8 x 14 cm. All anticoagulation has been stopped. Lower extremity Doppler ultrasound negative for DVT. Asked to
discuss anticoagulation management. Obviously, anticoagulation currently on hold with active bleeding. According to cardiology she does require some form of anticoagulation for her paroxysmal atrial fibrillation once current bleeding has resolved.
INR was therapeutic on admission 08/28/2024 = 2.50. Current INR down to 1.25.
Past-Medical/Surgical History
PMH:
Paroxysmal atrial fibrillation, GERD, HTN, diverticulitis and Portal vein thrombosis > 10 years ago
PSH: Cholecystectomy, Orthopedic (Left total knee replacement, left total hip arthroplasty) and Tonsilectomy
Allergy History:
itraconazole [From Sporanox] Allergy (Verified 06/21/24 21:41)
Rash
Penicillins Allergy (Verified 06/21/24 21:41)
Rash
vancomycin Allergy (Verified 06/21/24 21:41)
Rash
Medications Reviewed: Yes
Social History
Tobacco: Non-Smoker
Alcohol: None
Drug: None
Family History: Not Pertinent
Patient Medication
�Medication �Instructions �Recorded �Confirmed �Last Taken �Type
ezetimibe 10 mg-simvastatin 10 mg 1 ea PO DAILY 12/04/12 08/29/24 1 Day Ago History
tablet (Vytorin) ~12/09/14
multivitamin (Tep-Dfmcps-Qnvrv 1 ea PO DAILY 12/04/12 08/29/24 10/26/14 08:00 History
tablet)
sertraline 100 mg tablet 150 mg PO DAILY 12/04/12 08/29/24 1 Day Ago History
~12/09/14
warfarin 5 mg tablet (Jantoven) 5 mg PO DAILY ##0 10/31/14 08/29/24 08/26/24 Rx
celecoxib 200 mg capsule 200 mg PO DAILY 08/29/24 08/29/24 Unknown History
enoxaparin 80 mg/0.8 mL 80 mg SC Q12H 08/29/24 08/29/24 08/28/24 08:00 History
subcutaneous syringe (Lovenox)
losartan 25 mg tablet 25 mg PO DAILY 08/29/24 08/29/24 Unknown History
metoprolol tartrate 25 mg tablet 12.5 mg PO BID 08/29/24 08/29/24 Unknown History
omeprazole 40 mg capsule,delayed 40 mg PO DAILY 08/29/24 08/29/24 Unknown History
release
trazodone 50 mg tablet 50 mg PO HS 08/29/24 08/29/24 Unknown History
Active Medications
Generic Name Dose Route Start Last Admin
Trade Name Freq PRN Reason Stop Dose Admin
Acetaminophen 650 mg 08/29/24 04:49 08/29/24 08:06
Acetaminophen 325 Mg Tablet PO 09/26/24 04:48 650 mg
Q6HPRN PRN Administration
mild pain/ fever>100.5F
Al Hydrox/Mg Hydrox/Simethicone 30 ml 08/31/24 08:59 08/31/24 09:45
Mag/Al/Simethicone Suspension 30 Ml Cup PO 09/28/24 08:58 30 ml
QIDPRN PRN Administration
indigestion/heartburn
Levofloxacin 750 mg 08/30/24 18:00 09/01/24 08:01
Levofloxacin 750 Mg Tablet PO 750 mg
DAILY CLIFFORD Administration
Metoprolol Tartrate 5 mg 08/30/24 11:07
Metoprolol 5 Mg/5 Ml Vial IV 09/27/24 11:06
Q4HPRN PRN
persistent HR>120
Metoprolol Tartrate 25 mg 08/31/24 20:00 09/01/24 08:01
Metoprolol 25 Mg Regular Release Tablet PO 09/28/24 19:59 25 mg
BID CLIFFORD Administration
Metronidazole 500 mg 08/30/24 20:00 09/01/24 08:01
Metronidazole 500 Mg Tablet PO 500 mg
BID CLIFFORD Administration
Morphine Sulfate 4 mg 08/29/24 04:49 08/31/24 21:26
Morphine 4 Mg/Ml Injection IV 09/12/24 04:48 4 mg
Q4HPRN PRN Administration
severe pain
Oxycodone HCl 5 mg 08/29/24 04:49 08/31/24 03:47
Oxycodone 5 Mg Regular Release Tablet PO 09/12/24 04:48 5 mg
Q4HPRN PRN Administration
moderate pain
Pantoprazole Sodium 40 mg 08/31/24 20:00 09/01/24 08:02
Pantoprazole Sodium 40 Mg/10 Ml Vial IV 09/28/24 19:59 40 mg
BID CLIFFORD Administration
Polyethylene Glycol 17 grams 08/31/24 11:00 09/01/24 08:02
Polyethylene Glycol Powder 17 Grams Packet PO 09/28/24 10:59 17 grams
DAILY CLIFFODR Administration
Senna/Docusate Sodium 1 tablet 08/31/24 20:00 09/01/24 08:01
Docusate W/Senna (Irene-Colace) Tablet PO 09/28/24 19:59 1 tablet
BID CLIFFORD Administration
Sertraline HCl 150 mg 08/29/24 08:00 09/01/24 08:01
Sertraline 100 Mg Tablet PO 09/26/24 07:59 150 mg
DAILY CLIFFORD Administration
Sodium Chloride 0 flush 08/29/24 05:00
Sodium Chloride 0.9% (Flush) Syringe IV 09/26/24 04:59
PER PROTOCOL CLIFFORD
Sodium Chloride 10 ml 08/31/24 20:00 09/01/24 08:02
Sodium Chloride 0.9% (Preservative Free) 10 Ml Vial IV 09/28/24 19:59 10 ml
BID CLIFFORD Administration
Trazodone HCl 50 mg 08/29/24 22:00 08/31/24 21:17
Trazodone 50 Mg Tablet PO 09/26/24 21:59 50 mg
HS CLIFFORD Administration
Physical Exam
-
General: Well Developed, Well Nourished and No Apparent Distress
HEENT: Negative Jaundice
Cardiology: Normal Sinus Rhythm, S1 and S2
Pulmonary: Clear
GI: Soft and Normal Bowel Sounds
Extremities: No C/C/E
Labs
Lab Results
WBC 4.4 10^3/uL (4.8-10.8) L 09/01/24 05:21
RBC 2.99 10^6/uL (4.20-5.40) L 09/01/24 05:21
Hgb 7.4 g/dL (12.0-16.0) L 09/01/24 05:21
Hct 23.4 % (37.0-47.0) L 09/01/24 05:21
MCV 78.3 fL (81.0-99.0) L 09/01/24 05:21
MCH 24.7 pg (27.0-31.0) L 09/01/24 05:21
MCHC 31.6 g/dL (33.0-37.0) L 09/01/24 05:21
RDW 18.7 % (11.5-14.5) H 09/01/24 05:21
Plt Count 188 10^3/uL (130-400) 09/01/24 05:21
MPV 10.9 fL (7.4-10.4) H 09/01/24 05:21
Abs Immat Gran (auto) 0.0 10^3/uL (0-0.05) 08/28/24 22:13
Absolute Neuts (auto) 7.4 10^3/uL (1.4-6.5) H 08/28/24 22:13
Absolute Lymphs (auto) 0.4 10^3/uL (1.2-3.4) L 08/28/24 22:13
Absolute Monos (auto) 0.3 10^3/uL (0.1-0.6) 08/28/24 22:13
Absolute Eos (auto) 0.0 10^3/uL (0-0.7) 08/28/24 22:13
Absolute Basos (auto) 0.0 10^3/uL (0-0.2) 08/28/24 22:13
Immature Gran % 0.5 % (0-0.5) 08/28/24 22:13
Neutrophils % 90.7 % (42.2-75.2) H 08/28/24 22:13
Lymphocytes % 4.7 % (20.5-51.1) L 08/28/24 22:13
Monocytes % 4.0 % (1.7-9.3) 08/28/24 22:13
Eosinophils % 0.0 % (0-6) 08/28/24 22:13
Basophils % 0.1 % (0-2) 08/28/24 22:13
Creatinine 0.7 mg/dL (0.6-1.0) 09/01/24 05:21
Vital Signs
Vital Signs
Temp Pulse Resp BP Pulse Ox
98.6 F 65 14 122/55 98
09/01/24 07:16 09/01/24 07:16 09/01/24 07:16 09/01/24 07:16 09/01/24 07:16
[2024-09-01 09:27] LABS: Folate > 20.0 ng/ml (2.76-20); Vitamin B12 813 pg/ml (239-931)
--- NOTE | 2024-09-01 09:55 | W.PN.CARDCBS ---
Addendum entered and electronically signed by Brandt Cabello MD 09/01/24 13:11:
I saw and examined the patient.
The Automatic Tire Tester's note was reviewed and I agree with the note.
Comment: Briefly, 79-year-old woman past medical history of portal vein thrombosis and paroxysmal atrial fibrillation on warfarin who presents with spontaneous retroperitoneal bleed at the time of Lovenox bridging.
H/o AFib, but maintaining sinus rhythm here
Cont metoprolol
TTE with NL LV function and no high grade valve disease
Cardiology is asked to comment on her anticoagulation
Agree with holding warfarin given retroperitoneal hematoma and with Hgb consistently around 7.5
Would consider engaging vascular surgery for an opinion regarding safety of resuming OAC
Patient is interested in transition to DOAC. Given history of portal vein thrombosis will ask hematology to weigh in and asked CM to assess cost of Eliquis.
Treatment of recurrent diverticulitis by GI and ID
Original Note:
Today's Communication / Plan
-
Remains in SR, but pAfib on ECG 08/30/24
Indication for OAC due to pAfib and recommend Eliquis 5 mg BID, e-scribed to patient's pharmacy and task to CM to check on cost
Timing of restart of OAC is unknown, repeat H&H at noon today
Impression / Plan
-
PCP: Erika OWENS
Card: Dr. Watson, last seen 2016
Impression:
Admitted with left groin pain and retroperitoneal hematoma 08/29/2024
Chronic warfarin OAC for history of portal vein thrombosis
Therapeutic INR on admission
Outpatient Lovenox bridge starting 08/19/2024
h/o portal vein thrombosis
Diverticulitis
Was scheduled for outpatient colonoscopy at [facility] prompting Lovenox bridge as above
Paroxysmal A-fib, diagnosed 2016
h/o mildly dilated ascending aorta at 4.[address] 2016
Echo 02/2016: EF 55 to 60%
Echo 08/31/2024: EF 59%, normal diastolic function, normal RV size and function, mild aortic regurgitation, aortic root and the ascending aorta are dilated, sinus of Valsalva 4.1 cm, sinotubular junction 3.5 cm, ascending aorta 4.2 cm
Plan:
-Tele reviewed by me and looks like predominantly SR 09/01/24.
-Patient with h/o paroxysmal with A-fib during surgery back in 2017 at [facility], but then lost to follow up. Patient with Afib on ECG 08/30/24 and patient then spontaneously converted to SR and no recurrence of Afib.
-Tolerating higher dose of Lopressor 25 mg BID.
-Appreciate input from Hematology. Patient no longer has evidence of portal vein thrombosis on CT scan and previous portal vein thrombosis would have only required short-term OAC, yet she has stayed on warfarin for years and has never seen a
Customer Solutions Architect.
-Recommend Eliquis OAC for paroxysmal Afib. Will ask CM to check on cost of Eliquis 5 mg BID (age 79, Cre 0.7), patient is elated to get off of warfarin, but also worried about affordability of Eliquis.
-Timing of restart of OAC is unknown. Pain has improved and patient has not required transfusion. Hgb down a bit to 7.4 on 09/01/24 AM and repeat H&H at noon pending.
-Patient was bridging with Lovenox prior to admission in anticipation of colonoscopy for recurrent diverticulitis. Patient was given vitamin K 5 mg PO x 1 on 08/28/2024 and INR is down to 1.35 on 08/31/2024.
-EF stable by echo without significant valve disease
HPI: Patient came to [facility] Friday evening with acute onset left groin pain and was found to have a retroperitoneal hematoma prompting admission and cardiology is now consulted for evidence of A-fib on telemetry. Patient had last seen cardiology in
2016, but did not recall. Patient also did not recall that she has a history of paroxysmal atrial fibrillation that was diagnosed in 2017 in the setting of gastric sleeve surgery at [facility]. At that time patient was seen by cardiology at [facility] and
they felt that since patient already had a lifelong indication for warfarin for her history of a portal vein thrombosis that no intervention was made and when she followed up with our office 05/23/2017 she opted to continue with rate control in the
form of Lopressor 12.5 mg BID and she was in SR at that time. Since then patient has not followed up with cardiology, but has been following with GI due to 2 episodes of diverticulitis within the last year. Patient was scheduled to have an
outpatient colonoscopy this week and her PCP was managing her Lovenox bridge. Patient was told to start Lovenox bridge the day after her first missed dose of warfarin, patient reports taking her first warfarin injection on the morning of Friday,
08/27/2024. Patient started with abrupt onset left groin pain on the night of 08/28/2024 and in the ER was found to have a retroperitoneal hematoma. Cardiology is now consulted for evidence of paroxysmal A-fib on the monitor which patient
is asymptomatic with. Patient denies CP, SOB or palpitations.
Progress Note - Consumer Relations Specialist
Subjective
Date of Service: September 01, 2024
No groin or back pain
Objective
Labs:
09/01/24 05:21
Labs
Hgb 7.4 g/dL (12.0-16.0) L 09/01/24 05:21
Hct 23.4 % (37.0-47.0) L 09/01/24 05:21
Plt Count 188 10^3/uL (130-400) 09/01/24 05:21
PT 15.9 Sec (11.4-14.6) H 09/01/24 05:21
INR 1.25 09/01/24 05:21
Sodium 138 mmol/L (135-145) 09/01/24 05:21
Potassium 4.3 mmol/L (3.5-5.1) 09/01/24 05:21
BUN 10 mg/dl (7-17) 09/01/24 05:21
Creatinine 0.7 mg/dL (0.6-1.0) 09/01/24 05:21
Glucose 103 mg/dl (70-99) H 09/01/24 05:21
Vital Signs and I&O:
Vital Signs
Temp Pulse Resp BP Pulse Ox
98.6 F 65 14 122/55 98
09/01/24 07:16 09/01/24 07:16 09/01/24 07:16 09/01/24 07:16 09/01/24 07:45
Vital Signs
Temp Pulse Resp BP Pulse Ox
98.6 F 65 14 122/55 98
09/01/24 07:16 09/01/24 07:16 09/01/24 07:16 09/01/24 07:16 09/01/24 07:45
Intake & Output
08/30/24 08/31/24 09/01/24 09/02/24
06:59 06:59 06:59 06:59
Intake Total 1560 / 1560 480 / 480 1440 / 1440
Balance 1560 / 1560 480 / 480 1440 / 1440
Physical Exam
Physical Exam
GEN: NAD. AAOx3
HEENT: mmm
LUNGS: RA.
CV: SR on tele.
EXT: No edema B/L
NEURO: Gross non-focal
SKIN: No rash
[2024-09-01] MEDS: MAALOX 30 ML PO (09:57)
[2024-09-01 10:55] VITALS: BP 123/74
[2024-09-01 11:59] LABS: Hemoglobin 7.7 g/dL (12.0-16.0)
--- NOTE | 2024-09-01 12:54 | W.PN.UPDATE ---
Update Note
Progress Note Update
Back into see patient and told her that the Eliquis cost $402 a month which she cannot afford. Patient does not know if she has deductible to be met. Checked with CM and they apparently are not able to check. I left a note for the patient's
asking him to check with her insurance to see if there is a deductible to be met and explained that if the deductible is met then the cost may drop dramatically from the current cost.
--- NOTE | 2024-09-01 14:45 | W.PN.ID1 ---
Date of Service
Date of Service: September 01, 2024
Today's Communication
- c/w levofloxacin/metronidazole plan 14 day course 08/28-09/10
- close follow up of INR if warfarin is ultimately restarted
Assessment / Plan
Relapse of Diverticulitis
large hematoma in the left iliopsoas
H/o portal vein thrombosis - years ago - resolved
Reported allergy to penicillin - rash
- most recent course of cefuroxime by report, also note levofloxacin and metronidazole in June 2024
- inflammatory marked of limited use additional cause of inflammation - retroperitoneal hematoma
- QTc 428
- c/w levofloxacin/metronidazole plan 14 day course 08/28-09/10
- close follow up of INR if warfarin is ultimately restarted
- follow up with colorectal surgery given recurrence x3
Chief Complaint
-: Other (diverticulitis)
Subjective / Review of Systems
afebrile
bp stable
abdominal tenderness has resolved
Vital Signs / Physical Exam
Vital Signs
Vital Signs
Temp Pulse Resp BP Pulse Ox
98.4 F 64 16 123/74 100
09/01/24 10:55 09/01/24 10:55 09/01/24 10:55 09/01/24 10:55 09/01/24 10:55
Physical Exam
Constitutional: No Acute Distress
Cardiovascular: Regular Rate and S1/S2; Negative Murmur or Rub
Pulmonary: Clear and Symmetric; Negative Wheezes or Rales
Gastrointestinal: Soft, Non Tender, Non Distended and Normal Bowel Sounds
Skin: Warm and Dry; Negative Rash or Jaundice
Objective Data
Lab Data
Lab Results
09/01/24 11:43
09/01/24 05:21
PT 15.9 Sec (11.4-14.6) H 09/01/24 05:21
INR 1.25 09/01/24 05:21
Estimated Creat Clear 62 ml/min 09/01/24 05:21
Total Bilirubin 0.6 mg/dl (0.2-1.3) 08/28/24 22:13
AST 19 U/L (14-36) 08/28/24 22:13
ALT 14 U/L (0-35) 08/28/24 22:13
Alkaline Phosphatase 97 U/L (38-126) 08/28/24 22:13
Most recent labs reviewed.
Micro Results:
08/29/24 05:21 MRSA Screen - Final
Nose No Methicillin Resistant Staphylococcus aureus isolated.
[2024-09-01 15:15] VITALS: BP 109/64
--- NOTE | 2024-09-01 17:04 | CON.CRS ---
Medical History
-
History of Present Illness:
79-year-old female with PMH of portal vein thrombosis (10 years ago, on warfarin baseline; however, scheduled for colonoscopy today and was on Lovenox bridge for the last 1-2 days), paroxysmal A-fib, HTN, GERD, HLD and recurrent diverticulitis
(first episode June 2024 at [facility], second episode last month at [facility]) who presents with acute left-sided groin pain associated with nausea, no vomiting, no change in bowel habits. She was found to have a left iliopsoas hematoma that
was stable on repeat imaging. The CT also showed evidence of diverticulitis. However, patient denied any abdominal pain and her WBC was normal. She tolerated regular diet today without worsening pain. Her last colonoscopy was 1 year ago and reports
that this was normal (report not available to me).
Past Medical History
Past Medical History: Other (As above)
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
Social History
Tobacco: Non-Smoker
Alcohol: None
Drug: None
Personal:
Living: With Family
Family History
Family History: Other (Denies CRC)
Allergies / Home Medications
Allergy/AdvReac Type Severity Reaction Status Date / Time
itraconazole [From Sporanox] Allergy Rash Verified 06/21/24 21:41
Penicillins Allergy Rash Verified 08/30/24 16:07
vancomycin Allergy Rash Verified 06/21/24 21:41
�Medication �Instructions �Recorded �Confirmed �Type
ezetimibe 10 mg-simvastatin 10 mg 1 ea PO DAILY 12/04/12 08/29/24 History
tablet (Vytorin)
multivitamin (Cds-Znnync-Ejpko 1 ea PO DAILY 12/04/12 08/29/24 History
tablet)
sertraline 100 mg tablet 150 mg PO DAILY 12/04/12 08/29/24 History
warfarin 5 mg tablet (Jantoven) 5 mg PO DAILY ##0 10/31/14 08/29/24 Rx
celecoxib 200 mg capsule 200 mg PO DAILY 08/29/24 08/29/24 History
enoxaparin 80 mg/0.8 mL 80 mg SC Q12H 08/29/24 08/29/24 History
subcutaneous syringe (Lovenox)
losartan 25 mg tablet 25 mg PO DAILY 08/29/24 08/29/24 History
metoprolol tartrate 25 mg tablet 12.5 mg PO BID 08/29/24 08/29/24 History
omeprazole 40 mg capsule,delayed 40 mg PO DAILY 08/29/24 08/29/24 History
release
trazodone 50 mg tablet 50 mg PO HS 08/29/24 08/29/24 History
apixaban 5 mg tablet (Eliquis) 5 mg PO BID Blood clot 09/01/24 Rx
prevention/tx #60 tabs
Review of Systems
-
A 10 point review of systems was completed, and was negative except as per HPI.
Physical Exam
Vital Signs
Temp 99 F 09/01/24 15:15
Pulse 69 09/01/24 15:15
Resp Rate 14 09/01/24 15:15
Blood pressure 109/64 09/01/24 15:15
SaO2 98 09/01/24 15:15
Body Mass Index (BMI) 30.8
Lab Results / Allergies
09/01/24 11:43
09/01/24 05:21
WBC 4.4 10^3/uL (4.8-10.8) L 09/01/24 05:21
Hgb 7.7 g/dL (12.0-16.0) L 09/01/24 11:43
Hct 24.0 % (37.0-47.0) L 09/01/24 11:43
Plt Count 188 10^3/uL (130-400) 09/01/24 05:21
Abs Immat Gran (auto) 0.0 10^3/uL (0-0.05) 08/28/24 22:13
Neutrophils % 90.7 % (42.2-75.2) H 08/28/24 22:13
Allergy/AdvReac Type Severity Reaction Status Date / Time
itraconazole [From Sporanox] Allergy Rash Verified 06/21/24 21:41
Penicillins Allergy Rash Verified 08/30/24 16:07
vancomycin Allergy Rash Verified 06/21/24 21:41
Physical Exam
General: Well Developed, Well Nourished and No Apparent Distress
HEENT: Normocephalic and Atraumatic
Respiratory: Non Labored Respirations
GI: Soft, Non Tender and Non Distended
Skin: Warm and Dry
Neuro: AO x 3
Data Reviewed
-
CT Scan: Image Personally Visualized and interpreted and Discussed with Patient
Labs: Labs Reviewed by me
Assessment / Plan
-
79-year-old female with PMH of portal vein thrombosis (10 years ago, on warfarin baseline; however, scheduled for colonoscopy today and was on Lovenox bridge for the last 1-2 days), paroxysmal A-fib, HTN, GERD, HLD and recurrent diverticulitis
(first episode June 2024 at [facility], second episode last month at [facility]) who presents with acute left-sided groin pain associated with nausea, no vomiting, no change in bowel habits; she was found to have a left iliopsoas hematoma that
was stable on repeat imaging; CT also showed mild evidence of diverticulitis; however, patient denies any abdominal pain, WBC has been normal and tolerating food
AFVSS, ABD soft, nondistended, nontender, no rebound or guarding
WBC 4.4
� Recurrent diverticulitis
-Explained the pathophysiology of uncomplicated versus complicated diverticulitis and the treatment options; explained that for complicated diverticulitis or multiple episodes of uncomplicated diverticulitis that is affecting one's quality of life,
elective surgery is recommended; however, for uncomplicated diverticulitis by itself, elective surgery is not necessarily indicated; explained the risks of emergent surgery and ostomy creation; overall, with uncomplicated diverticulitis, these risks
are low, but not zero; she has had 2 episodes within a 3-month time span, which does increase her risk for recurrence, but would not change my recommendation for surgery quite yet; additionally, the CT this admission suggested diverticulitis, but it
is not consistent with her clinical picture (i.e.�no abdominal pain, tolerating regular diet)
�Despite the above risks with nonoperative management, the patient expressed that she is very opposed to surgery
�No antibiotics needed from colorectal standpoint; will defer to ID
� Pain control with Tylenol, oxycodone, morphine as needed
� Would recommend DVT PPx
� Appreciate hospitalist; colorectal will sign off; recommend patient follow-up with me in 2 to 4 weeks after discharge
[2024-09-01] MEDS: DESYREL 50 MG PO (20:44)
[2024-09-01] MEDS: MORPHINE SULFATE 4 MG IV (20:46)
[2024-09-01 23:00] VITALS: BP 100/59
[2024-09-02 05:33] LABS: Hematocrit 23.2 % (37.0-47.0); Hemoglobin 7.6 g/dL (12.0-16.0); Mean Corp Hgb Conc. 32.8 g/dL (33.0-37.0); Mean Corpuscular Hgb 25.4 pg (27.0-31.0); Mean Corpuscular Volume 77.6 fL (81.0-99.0); Mean Platelet Volume 10.9 fL (7.4-10.4); Platelet Count 194 10^3/uL (130-400); Red Blood Cell Count 2.99 10^6/uL (4.20-5.40); Red Cell Dist. Width 19.1 % (11.5-14.5); White Blood Cell Count 5.2 10^3/uL (4.8-10.8)
[2024-09-02 05:50] LABS: INR 1.19; PT 15.6 Sec (11.4-14.6)
[2024-09-02 06:02] LABS: Blood Urea Nitrogen 9 mg/dl (7-17); Calcium 8.7 mg/dl (8.4-10.2); Carbon Dioxide 25 mmol/L (22-30); Chloride 107 mmol/L (98-107); Estimated Creatinine Clearance 62 ml/min; Glucose 102 mg/dl (70-99); Phosphorus 3.7 mg/dl (2.5-4.5); Potassium 4.1 mmol/L (3.5-5.1); Sodium 136 mmol/L (135-145); eGFR > 60.00
--- NOTE | 2024-09-02 06:08 | W.PN.HOSP.TC ---
Today's Communication/Plan
-
discharge
Assessment / Plan
Assessment / Plan
Physical Exam
General: No acute distress appears comfortable at this time
HEENT: NormoCephalic, Anicteric, Moist mucous membranes and Atraumatic
Respiratory: Clear
Cardiac: S1/S2 and Regular Rhythm
GI: Soft, Non Distended, Normal Bowel Sounds, non-Tender
Musculoskeletal: No Clubbing, No Cyanosis and No Edema
Skin: Warm
Neuro: AO x 3 conversant coherent
Psych: Calm
77F hx portal vein thrombosis on Coumadin HTN Depression Anxiety GERD HLD ongoing persistent intermittent treatments for diverticulitis past month here for left-sided groin pain found to have iliopsoas hematoma. Prior to presentation patient had
been off Coumadin, on lovenox bridge, in preparation for outpt EGD/colonoscopy.
#Rp hematoma centered in the left iliopsoas muscle - large hematoma but no arterial bleed. Small bleeding foci noted. She is hemodynamically stable. Hgb is normal and unchanged from june. Appears to be spontaneous without trauma. However she
has been taking lovenox 80mg sc q 12 since discontinuation of Coumadin while preparing for colonoscopy/egd at [facility]. Anticoagulation likely contributing
- Tele admit
- d/w IR, no need for intervention, cont hold AC
- Clear liquid diet advanced to regular tolerating
- H&H dipped from 9's to 7's range however suspect dilutional (all cell lines down following start IVF) repeat H&H stable, daily iron supplementation started
- INR since improved <2 following Vit K
- pain control and antimetics
- Hematology Eval appreciated no need fo hypercoagulable work up, no need to resume AC for hx portal vein thrombosis, ok to switch to Eliquis for treatment afib.
-repeat CT abd/pelvis in 2-4 weeks with cardiology
#paroxysmal afib
#Afib RVR
developed afib rvr during stay improved with fluid boluses and continuation home metoprolol
has hx of afib dx years ago but loss to cardiology follow up
Cardio eval appreciated home metoprolol increased to 25 mg bid
ECHO appreciated EF 59% aortic root and descending aorta noted mildly dilated
to start anticoagulation with cardiology in outpt follow up
# Diverticulitis - CT scan shows active inflammatory process although patient appears to have improved symptomatically since 08/23 until occurence of hematoma. She was not discharged on flagyl due to it's potentiating effect on warfarin.
#Hx portal vein thrombosis (not seen in recent imaging)
- ID eval appreciated empiric meropenem switched to Levaquin and Flagyl to continue through 09/10 then stop
- GI eval appreciated
- ppi iv daily
- continue metoprolol with hold parameters
-CRS eval appreciated outpt follow up recommended
#GERD
IV protonix increased to BID
maalox prn
symptoms improved with spacing out morning medications
recommended to continue follow up with her outpt GI doctor
DVT PPX - SCDs
Code status - full code
Medically stable for discharge home with outpatient follow up recommendations.
Total Time Preparing Discharge ___40____ minutes including examination of the patient, summary of the hospital stay, instructions for continuing care to all relevant caregivers; and preparation of discharge records, prescriptions, and referral
forms if necessary.
Anticipated Discharge: Today
Subjective/Interval History
-
Date of Service: September 02, 2024
No acute distress. Reports overall feeling well. Noted significant improvement in GERD symptoms with spacing out morning meds. denies new acute issues. Eager to go home.
Objective Data
-
Labs:
Laboratory Results
09/02/24
05:16
WBC 5.2
Hgb 7.6 L
Hct 23.2 L
Plt Count 194
PT 15.6 H
INR 1.19
Sodium 136
Potassium 4.1
Chloride 107
Carbon Dioxide 25
BUN 9
Creatinine 0.7
Glucose 102 H
Calcium 8.7
Vital Signs:
Vital Signs
Temp Pulse Resp BP Pulse Ox
98.7 F 62 18 100/59 95
09/01/24 23:00 09/01/24 23:00 09/01/24 23:00 09/01/24 23:00 09/01/24 23:00
I&O
08/31/24 09/01/24 09/02/24
06:59 06:59 06:59
Intake Total 480 / 480 1440 / 1440 720 / 720
Balance 480 / 480 1440 / 1440 720 / 720
[2024-09-02 07:05] VITALS: BP 115/69
[2024-09-02] MEDS: LOPRESSOR 25 MG PO (07:16)
[2024-09-02] MEDS: MAALOX 30 ML PO (07:16)
[2024-09-02] MEDS: ZOLOFT 150 MG PO (07:16)
[2024-09-02] MEDS: MIRALAX 17 GRAMS PO (07:17)
[2024-09-02] MEDS: PROTONIX IV 40 MG IV (07:17)
[2024-09-02] MEDS: LEVAQUIN 750 MG PO (07:17)
[2024-09-02] MEDS: FLAGYL 500 MG PO (07:17)
[2024-09-02] MEDS: NSS (PRESERVATIVE FREE) 10 ML IV (07:18)
[2024-09-02] MEDS: SENOKOT-S 1 TABLET PO (07:18)
--- NOTE | 2024-09-02 11:59 | W.PN.CARDCBS ---
Addendum entered and electronically signed by Mikki Ragland DO 09/02/24 14:56:
I saw and examined the patient.
The Signals Intelligence Analyst's note was reviewed and I agree with the note.
Comment: Patient was seen and examined. Overall she feels well and is ambulating in her room without difficulty. No chest pain or pressure. No leg pain.
General: No acute distress, AAOX3
Neck: Negative JVD
Heart: Regular, positive S1/S2, No murmur
Lungs: CTA b/l, negative wheezes/rales/rhonchi
Abd: Positive BS, NT/ND, neg rebound/rigidity/guarding
Ext: No edema.
Neuro: nonfocal
Plan:
Left sided groin pain with iliopsoas hematoma with acute blood loss anemia after taking Lovenox with INR therapeutic on Coumadin prior to planned colonoscopy.
-Hemoglobin 7.6 g/dL; she has had no transfusion
-Baseline hemoglobin 10 g/dL
-Will hold off restarting anticoagulation
-Plan for repeat lab work prior to outpatient cardiac follow-up.
-Spoke unofficially with vascular surgery and they agree with following plan: Repeat lab work to show stability/improvement of hemoglobin. Repeat CT abdomen pelvis in 2 to 4 weeks to show improvement/resolution of hematoma prior to restarting blood
thinners. CT can be arranged at cardiac follow-up.
-Would also consider discharging patient on oral iron; defer to primary
-Avoid strenuous activity/heavy lifting
Paroxysmal atrial fibrillation currently in sinus rhythm.
-Eventually plan to resume anticoagulation either Coumadin or Eliquis. Eliquis may be cost prohibitive however we can look into financial assistance programs through the office
-In the future can also discuss further whether or not she is a candidate for Watchman
-Per current guidelines, at this time would not require bridge therapy for future procedures
History of portal vein thrombosis in 2015 with no need for ongoing anticoagulation or hypercoagulable testing from a hematologic standpoint
Relapse of diverticulitis
-Management per ID with antibiotics planned through September 10.
-Management per GI and colorectal surgery
-Outpatient follow-up planned
Stable from a cardiovascular standpoint
Will sign off, recall if needed
Original Note:
Today's Communication / Plan
-
Cont to hold OAC
Cardiology office working on patient prescription assistance
Cont higher dose Lopressor 25 mg BID
Cardiology f/u arranged
Impression / Plan
-
PCP: Erika OWENS
Card: Dr. Watson, last seen 2016
Impression:
Admitted with left groin pain and retroperitoneal hematoma 08/29/2024
Chronic warfarin OAC for history of portal vein thrombosis
Therapeutic INR on admission
Outpatient Lovenox bridge starting 08/19/2024
h/o portal vein thrombosis
Diverticulitis
Was scheduled for outpatient colonoscopy at [facility] prompting Lovenox bridge as above
Paroxysmal A-fib, diagnosed 2016
h/o mildly dilated ascending aorta at 4.[address] 2017
Echo 02/2016: EF 55 to 60%
Echo 08/31/2024: EF 59%, normal diastolic function, normal RV size and function, mild aortic regurgitation, aortic root and the ascending aorta are dilated, sinus of Valsalva 4.1 cm, sinotubular junction 3.5 cm, ascending aorta 4.2 cm
Plan:
-Tele reviewed by me 09/02/24 and remains in SR.
-Patient with h/o paroxysmal with A-fib during surgery back in 2017 at [facility], but then lost to follow up. Patient with Afib on ECG 08/30/24 and patient then spontaneously converted to SR and no recurrence of Afib.
-Tolerating higher dose of Lopressor 25 mg BID.
-Appreciate input from Hematology. Patient no longer has evidence of portal vein thrombosis on CT scan and previous portal vein thrombosis would have only required short-term OAC, yet she has stayed on warfarin for years and has never seen a
Manager Finance. Hematology and GI report that there is no indication for OAC for h/o portal vein thrombosis.
-Patient is recommend Eliquis OAC for paroxysmal Afib. CM checked cost of Eliquis and it is reportedly $402/month. CM unable to determine if the patient has a deductible that once met will drop the cost of Eliquis. Message left for by me to
check with insurance and from his inquiry there dose not appear to be a deductible to meet. Task to OAC RN in the office to check on patient prescription assistance and they will reach out to patient to complete paperwork including financials.
Correct dose is Eliquis 5 mg BID (age 79, Cre 0.7).
-Timing of restart of OAC is unknown. Pain has improved and patient has not required transfusion. Hgb 7.6 on 09/02/24 AM. Will repeat labs as an outpatient and patient is scheduled to be seen in the office 09/14/24
-Patient was bridging with Lovenox prior to admission in anticipation of colonoscopy for recurrent diverticulitis. Patient was given vitamin K 5 mg PO x 1 on 08/28/2024 and INR is down to 1.35 on 08/31/2024.
-EF stable by echo without significant valve disease
-Stable for d/c from cardiac standpoint
HPI: Patient came to [facility] Friday evening with acute onset left groin pain and was found to have a retroperitoneal hematoma prompting admission and cardiology is now consulted for evidence of A-fib on telemetry. Patient had last seen cardiology in
2016, but did not recall. Patient also did not recall that she has a history of paroxysmal atrial fibrillation that was diagnosed in 2017 in the setting of gastric sleeve surgery at [facility]. At that time patient was seen by cardiology at [facility] and
they felt that since patient already had a lifelong indication for warfarin for her history of a portal vein thrombosis that no intervention was made and when she followed up with our office 05/23/2017 she opted to continue with rate control in the
form of Lopressor 12.5 mg BID and she was in SR at that time. Since then patient has not followed up with cardiology, but has been following with GI due to 2 episodes of diverticulitis within the last year. Patient was scheduled to have an
outpatient colonoscopy this week and her PCP was managing her Lovenox bridge. Patient was told to start Lovenox bridge the day after her first missed dose of warfarin, patient reports taking her first warfarin injection on the morning of Friday,
08/27/2024. Patient started with abrupt onset left groin pain on the night of 08/28/2024 and in the ER was found to have a retroperitoneal hematoma. Cardiology is now consulted for evidence of paroxysmal A-fib on the monitor which patient
is asymptomatic with. Patient denies CP, SOB or palpitations.
Progress Note - Holter Technician
Subjective
Date of Service: September 02, 2024
Feels better, wants to go home
Objective
Labs:
09/02/24 05:16
09/02/24 05:16
Labs
Hgb 7.6 g/dL (12.0-16.0) L 09/02/24 05:16
Hct 23.2 % (37.0-47.0) L 09/02/24 05:16
Plt Count 194 10^3/uL (130-400) 09/02/24 05:16
PT 15.6 Sec (11.4-14.6) H 09/02/24 05:16
INR 1.19 09/02/24 05:16
Sodium 136 mmol/L (135-145) 09/02/24 05:16
Potassium 4.1 mmol/L (3.5-5.1) 09/02/24 05:16
BUN 9 mg/dl (7-17) 09/02/24 05:16
Creatinine 0.7 mg/dL (0.6-1.0) 09/02/24 05:16
Glucose 102 mg/dl (70-99) H 09/02/24 05:16
Vital Signs and I&O:
Vital Signs
Temp Pulse Resp BP Pulse Ox
98.1 F 63 18 115/69 97
09/02/24 07:05 09/02/24 07:05 09/02/24 07:05 09/02/24 07:05 09/02/24 08:00
Vital Signs
Temp Pulse Resp BP Pulse Ox
98.1 F 63 18 115/69 97
09/02/24 07:05 09/02/24 07:05 09/02/24 07:05 09/02/24 07:05 09/02/24 08:00
Intake & Output
08/31/24 09/01/24 09/02/24 09/03/24
06:59 06:59 06:59 06:59
Intake Total 480 / 480 1440 / 1440 720 / 720
Balance 480 / 480 1440 / 1440 720 / 720
Physical Exam
Physical Exam
GEN: NAD. AAOx3
HEENT: mmm
LUNGS: RA.
CV: SR on tele.
EXT: No edema B/L
NEURO: Gross non-focal
SKIN: No rash
[2024-09-02 15:00] VITALS: BP 136/65
--- NOTE | 2024-09-02 16:12 | VATNOTE ---
both IV sites removed due to leaking and occlusion. Did not restart pt. with IV since she states dr. belle saw her today and states she is going home. Pt also not on telemetry. PCN made aware. Just noted now pt. hgb for today was 7.6; thus pt should
have IV site. Will follow to see if d/c today.
--- NOTE | 2024-09-02 16:54 | CM ---
MD entered order for discahrge.
Spoke with pt she said she was ready for discahrge today ,
IMM reviewed with her she agrees with dc.
Lamin will drive her home.
Offered VN she said she was not homebound and declined.
PLAN Home no needs
--- NOTE | 2024-09-02 17:03 | W.DCSUMMARY ---
Discharge Summary
Discharge Data
Date of Admission: 08/29/24
Date of Discharge: 09/02/24
-
Pending Results: No
Discharge Plan
-
Patient Disposition: Home (Routine Discharge)
Discharge Diagnosis/Procedures: Retroperitoneal hematoma centered in the left iliopsoas muscle
paroxysmal atrial fibrillation
Diverticulitis
GERD
Condition: Fair
Diet: Regular
Activity: No strenuous activity
Additional Activity: avoid strenuous activity or heavy lifting. Follow up with primary care provider or other healthcare provider involved in your care for further recommendations regarding advancing activity.
Driving Restrictions: As prior to admission
Bathing Restrictions: None
Blood Work: Please repeat CBC Friday or Friday following discharge. Results to be forwarded to primary care provider and GI doctor. Script provided to facilitate
Others Tests: Repeat CT abd/pelvis with Cardiology in 2-4 weeks of discharge to follow up hematoma
Activity Restrictions/Additional Instructions:
Please follow up with primary care provider in 1 week of discharge. Keep your appointment with Cardiology. Follow up with colorectal surgeon and GI in 2-4 weeks of discharge.
Antibiotics levofloxacin and metronidazole have been prescribed for diverticulitis. 09/10/24 is your last day for antibiotics.
iron supplement prescribed for anemia
Maalox as needed prescribed for GERD.
Metoprolol increased to 25 mg twice a day for better control of paroxysmal atrial fibrillation.
Please take medications as prescribed/recommended and follow up with primary care provider and/or other healthcare provider involved in your care for refills and/or further adjustment to your medication regimen as necessary.
Referrals:
Calvin Arredondo MD [Active] - in two to four weeks
Brown Flores MD [Family Provider] - in one week
Calvin Watson MD [Active] - 09/14/24 2:40 pm (You are scheduled to see Dr. Watson's physician patient care assistant, Barbara, at the [place] office on 09/14/2024 at 2:40 PM. Please call to [phone] if you need to reschedule)
Christopher Au MD [Active] - in two to four weeks
Additional Discharge Medication Instructions: -Do not take any blood thinner for now. The cardiology office is working on patient prescription assistance for the Eliquis.
Prescriptions:
New
Eliquis 5 mg tablet
5 mg PO BID Qty: 60 11RF
ferrous sulfate [FeroSul] 325 mg (65 mg iron) Tablet
325 mg PO DAILY Qty: 30 0RF
metronidazole 500 mg Tablet
500 mg PO BID Qty: 17 0RF
Rx Instructions:
09/10/24 last day for antibiotics
levofloxacin 750 mg Tablet
750 mg PO DAILY Qty: 8 0RF
Rx Instructions:
09/10/24 last day for antibiotics
alum-mag hydroxide-simeth [Mag-Al Plus] 200-200-20 mg/5 mL Suspension
30 ml PO QIDPRN PRN (Reason: indigestion/heartburn) Qty: 3000 0RF
metoprolol tartrate 25 mg Tablet
25 mg PO BID Qty: 60 0RF
Continued
sertraline 100 MG tablet
150 mg PO QPM
ezetimibe-simvastatin [Vytorin 10-10] 1 EACH tablet
1 ea PO QPM
trazodone 50 mg Tablet
50 mg PO HS
omeprazole 40 mg Capsule,Delayed Release(Dr/Ec)
40 mg PO DAILY
losartan 25 mg Tablet
25 mg PO DAILY
multivitamin Tablet
1 tab PO DAILY
Discontinued
warfarin [Jantoven] 5 MG tablet
5 mg PO DAILY Qty: 0 0RF
metoprolol tartrate 25 mg Tablet
12.5 mg PO BID
enoxaparin [Lovenox] 80 mg/0.8 mL Syringe
80 mg SC Q12H
Rx Instructions:
bridge for endoscopy
Discharge Orders:
Discharge Patient (As Directed); Ordered 09/02/24
Ordered By: Dasha Hunt
Discharge Date and Time
Print Language: GREENLANDIC
--- NOTE | 2024-09-02 17:19 | W.PN.ID1 ---
Date of Service
Date of Service: September 02, 2024
Today's Communication
- c/w levofloxacin/metronidazole plan 14 day course 08/28-09/10
- close follow up of INR if warfarin is ultimately restarted
- appreciate colorectal surgery input
- follow up with PCP
Assessment / Plan
Relapse of Diverticulitis
large hematoma in the left iliopsoas
H/o portal vein thrombosis - years ago - resolved
Reported allergy to penicillin - rash
- most recent course of cefuroxime by report, also note levofloxacin and metronidazole in June 2024
- QTc 428
- c/w levofloxacin/metronidazole plan 14 day course 08/28-09/10
- close follow up of INR if warfarin is ultimately restarted
- appreciate colorectal surgery input
- follow up with PCP
Chief Complaint
-: Other (diverticulitis)
Subjective / Review of Systems
afebrile
bp stable
abdomen nontender
seen by CRS
Vital Signs / Physical Exam
Vital Signs
Vital Signs
Temp Pulse Resp BP Pulse Ox
98.1 F 71 18 136/65 99
09/02/24 15:00 09/02/24 15:00 09/02/24 15:00 09/02/24 15:00 09/02/24 15:00
Physical Exam
Constitutional: No Acute Distress
Cardiovascular: Regular Rate and S1/S2; Negative Murmur or Rub
Pulmonary: Clear and Symmetric; Negative Wheezes or Rales
Gastrointestinal: Soft, Non Tender, Non Distended and Normal Bowel Sounds
Skin: Warm and Dry; Negative Rash or Jaundice
Objective Data
Lab Data
Lab Results
09/02/24 05:16
09/02/24 05:16
PT 15.6 Sec (11.4-14.6) H 09/02/24 05:16
INR 1.19 09/02/24 05:16
Estimated Creat Clear 62 ml/min 09/02/24 05:16
Total Bilirubin 0.6 mg/dl (0.2-1.3) 08/28/24 22:13
AST 19 U/L (14-36) 08/28/24 22:13
ALT 14 U/L (0-35) 08/28/24 22:13
Alkaline Phosphatase 97 U/L (38-126) 08/28/24 22:13
Most recent labs reviewed.
Micro Results:
08/29/24 05:21 MRSA Screen - Final
Nose No Methicillin Resistant Staphylococcus aureus isolated.
== END 2024-09-02 17:20 | disposition home or self-care (01) | DRG 813 ==
LOC: 3 WEST ACU 03:42
PROVIDERS: Family Medicine; ADMITTING PHYSICIAN Internal Medicine; ATTENDING PHYSICIAN Internal Medicine; CONSULT PHYSICIAN Internal Medicine Gastroenterology; CONSULT PHYSICIAN Nuclear Medicine Nuclear Cardiology; EMERGENCY PHYSICIAN Student in an Organized Health Care Education/Training Program; FAMILY PHYSICIAN Internal Medicine; OTHER PHYSICIAN Internal Medicine Hematology & Oncology; OTHER PHYSICIAN Student in an Organized Health Care Education/Training Program; OTHER PHYSICIAN Surgery
DX: D68.32 Hemorrhagic disorder due to extrinsic circulating anticoagulants (principal); K68.3 Retroperitoneal hematoma; K57.32 Diverticulitis of large intestine without perforation or abscess without bleeding; I48.0 Paroxysmal atrial fibrillation; K21.9 Gastro-esophageal reflux disease without esophagitis; Z79.01 Long term (current) use of anticoagulants; Z86.718 Personal history of other venous thrombosis and embolism; I10 Essential (primary) hypertension; E78.00 Pure hypercholesterolemia, unspecified; K42.9 Umbilical hernia without obstruction or gangrene; F41.9 Anxiety disorder, unspecified; F32.A Depression, unspecified; I71.40 Abdominal aortic aneurysm, without rupture, unspecified; Z90.49 Acquired absence of other specified parts of digestive tract; Z96.652 Presence of left artificial knee joint; Z96.642 Presence of left artificial hip joint; Z87.891 Personal history of nicotine dependence; Z88.0 Allergy status to penicillin; Z88.1 Allergy status to other antibiotic agents; Z79.899 Other long term (current) drug therapy; Z82.49 Family history of ischemic heart disease and other diseases of the circulatory system; Z82.3 Family history of stroke; M19.90 Unspecified osteoarthritis, unspecified site; T45.515A Adverse effect of anticoagulants, initial encounter
CPT/HCPCS: 72192; 74174; 80048; 80053; 82607; 82728; 82746; 83540; 83550; 83735; 84100; 85014; 85018; 85025; 85027; 85610; 86803; 86850; 86900; 86901; 87070; 92610; 93005; 93306; 93971; 96374; 96375; 96376; 99291; Q9967

== ENCOUNTER → 2024-09-28 07:58 | Outpatient (REF) | payer MEDICARE, SELFPAY | LOC: RAD 07:58 | PROVIDERS: ATTENDING PHYSICIAN Physician Assistant | DX: D64.9 Anemia, unspecified (principal); Z09 Encounter for follow-up examination after completed treatment for conditions other than malignant neoplasm; Z79.01 Long term (current) use of anticoagulants; I48.0 Paroxysmal atrial fibrillation; K57.92 Diverticulitis of intestine, part unspecified, without perforation or abscess without bleeding; S70.12XD Contusion of left thigh, subsequent encounter | CPT/HCPCS: 74174; Q9967 ==

== ENCOUNTER → 2024-11-08 08:03 | Outpatient (REF) | payer MEDICARE, SELFPAY | LOC: WDC 08:03 | PROVIDERS: ATTENDING PHYSICIAN Physician Assistant | DX: Z12.31 Encounter for screening mammogram for malignant neoplasm of breast (principal) | CPT/HCPCS: 77063; 77067 ==

== ENCOUNTER → 2025-01-14 09:51 | Outpatient (REF) | payer MEDICARE, SELFPAY | LOC: RAD 09:51 | PROVIDERS: ATTENDING PHYSICIAN Obstetrics & Gynecology; PRIMARYCARE PHYSICIAN Physician Assistant | DX: N83.201 Unspecified ovarian cyst, right side (principal) | CPT/HCPCS: 76830; 76856 ==

== ENCOUNTER → 2025-04-29 07:25 | Outpatient (REF) | payer MEDICARE, SELFPAY | LOC: HWRAD 07:25 | PROVIDERS: ATTENDING PHYSICIAN Obstetrics & Gynecology; FAMILY PHYSICIAN Physician Assistant | DX: N83.201 Unspecified ovarian cyst, right side (principal); N83.202 Unspecified ovarian cyst, left side | CPT/HCPCS: 76830; 76856 ==